=== PATIENT | female | born 1940 | race Caucasian/White ===

== ENCOUNTER 2017-02-21 10:45 | Inpatient (IN) | payer MEDICARE, BC ==
--- NOTE | ~2017-02-21 | HP ---
Unit #: [id number] #: [id number] Patient: DONI MCMAHON [id number] [address] [address] [id number] I MR#: [id number] NAME: DONI MCMAHON ROOM: 465 Age: 76 Sex: F Admission Date: 02/21/2017 : 1940 Attending Physician: Flores Kevin M.D. Primary Care Physician: Hunter Viverso M.D. HISTORY AND PHYSICAL DATE OF ANTICIPATED ADMISSION/PROCEDURE February 23, 2017 HISTORY OF PRESENT ILLNESS The patient is a 76-year-old female who suffers with osteoporosis and multiple falls. She complains of pain in her back. A thoracic CT demonstrated the presence of three fractures, and she is admitted for surgery. PAST MEDICAL HISTORY 1. Acid reflux. 2. Arteriosclerotic vascular disease. 3. Sinusitis. 4. Chronic obstructive pulmonary disease. 5. Osteoporosis. 6. Gout. 7. Possible atrial fibrillation. 8. Hiatal hernia. 9. Peripheral vascular disease. 10. High blood pressure. 11. Lymphedema. 12. Peripheral neuropathy. 13. Premature ventricular contractions. 14. Pyuria. MEDICATIONS 1. Amiodarone. 2. Amlodipine. 3. Aspirin. 4. Atenolol. 5. Cyanocobalamin. 6. Cyclobenzaprine. 7. Cyproheptadine. 8. Furosemide. 9. Montelukast. 10. Nitrofurantoin. 11. Plaquenil. 12. Prevacid. 13. ProAir inhaler 2 puffs 4 times daily as needed. 14. Vitamins. 15. Spiriva HandiHaler. 16. Tramadol. 17. Vitamin D. 18. Zyrtec. Unit #: [id number] #: [id number] Patient: DONI MCMAHON PAST SURGICAL HISTORY 1. T4 kyphoplasty. 2. Selective arterial catheterization. FAMILY HISTORY Noncontributory. SOCIAL HISTORY Nonsmoker, nondrinker. REVIEW OF SYSTEMS A 14-point review of systems is negative except for the above complaints. PHYSICAL EXAMINATION GENERAL: Patient is awake, alert, and oriented to person, place, and time. Mood and affect are appropriate. VITAL SIGNS: Heart rate is 100 beats per minute, respirations 12 per minute, blood pressure 125/85, and temperature is 98.6. DIAGNOSTIC STUDIES IMAGING: CT scan demonstrates the presence of T7, T10, and T11 compression fractures that appear acute. CLINICAL IMPRESSION 1. Osteoporosis. 2. T7, T10, and T11 compression fractures. RECOMMENDATION We discussed the various treatment options. I recommended kyphoplasty. The patient has had a good outcome from previous kyphoplasty. She understands the risks of surgery. These include ectopic methacrylate extrusion, nerve damage, and paralysis, any of which can necessitate additional surgery. She could develop additional fractures given her history. No specific outcome is guaranteed. Dictated by Fermin Molina/malena TD: 02/20/2017 20:43 JOB #: [id number] HISTORY AND PHYSICAL Page 1 of 1 X Nathan Rao MD HISTORY AND PHYSICAL
--- NOTE | ~2017-02-21 | EKG ---
PATIENT: DONI MCMAHON UNIT #: [id number] Ventricular Rate: 65 BPM Atrial Rate: 64 BPM QRS Duration: 96 ms Q-T Interval: 468 ms QTC Calculation(Bezet): 486 ms Calculated R Herrin: -22 degrees Calculated T Herrin: 13 degrees Diagnosis Line: Normal sinus rhythm Diagnosis Line: Voltage criteria for left ventricular hypertrophy Diagnosis Line: Nonspecific ST and T wave abnormality Diagnosis Line: Prolonged QT Diagnosis Line: Abnormal ECG Diagnosis Line: When compared with ECG of 01-OCT-2014 05:43, Diagnosis Line: No significant change was found Diagnosis Line: Confirmed by MELITON JULES MD ([id number]) on 02/22/2017 Diagnosis Line: 6:15:22 AM INTERPRETING MD: DHARA MCCORMICK
--- NOTE | ~2017-02-21 | CR72 ---
[facility] A Service of [facility] RADIOLOGY TEXT RESULTS PATIENT: DONI MCMAHON LOCATION: [facility] : 40 UNIT #: [id number] AGE: [address]: Flores Kevin MD SEX: F ORDER DR: [id number] [facility] [address]. [place], [place] [address] [id number] I MR#: [id number] Acc #: [id number] NAME: DONI MCMAHON : 1940 SEX: F STUDY DATE/TIME: 02/21/2017 15:27 UNIT: [facility] ROOM: [facility] STUDY DESCRIPTION: CR Chest Single View Portable Attending Physician: Flores Kevin M.D. Ordering Physician: Nathan Rao M.D. Primary Care Physician: Hunter Viveros M.D. MEDICAL IMAGING REPORT This report is preliminary unless electronic signature is present EXAM Portable chest DATE OF EXAMINATION 02/21/2017 COMPARISON 06/05/2016 HISTORY Shortness of breath for 2 weeks. FINDINGS n An AP portable view is obtained showing very low volumes. There is an increase in atelectasis in both bases. Upper lobe vascular markings are prominent but could be related to the low volumes. Left hemidiaphragm remains elevated. Heart size is stable. Postop changes of prior vertebroplasty are present in the lower thoracic region. CONCLUSION Low volumes. Increase in bibasilar atelectasis. Development of mild passive congestion, which is probably related to positioning and low volumes. Dictated by... Nathan Garces M.D. THIS IS AN ELECTRONICALLY VERIFIED REPORT Nathan Garces M.D. at 02/21/2017 10:17 PM STEPHEN/lorne TD: 02/21/2017 16:59 JOB #: [id number] [facility] A Service of [facility] RADIOLOGY TEXT RESULTS PATIENT: DONI MCMAHON LOCATION: [facility] : 40 UNIT #: [id number] AGE: [address]: Flores Kevin MD SEX: F ORDER DR: MEDICAL IMAGING REPORT Page 1 of 1 COPY
--- NOTE | ~2017-02-21 | NM69 ---
[facility] A Service [facility] RADIOLOGY TEXT RESULTS PATIENT: DONI MCMAHON LOCATION: [facility] : 40 UNIT #: [id number] AGE: [address]: Flores Kevin MD SEX: F ORDER DR: [id number] [place] [id number] [facility]. [place], [place] [address] [id number] I MR#: [id number] Acc #: [id number] NAME: DONI MCMAHON : 1940 SEX: F STUDY DATE/TIME: 02/21/2017 19:54 UNIT: [facility] ROOM: [facility] STUDY DESCRIPTION: NM Pulm Vent and Perf Attending Physician: Flores Kevin M.D. Ordering Physician: Tawanna Mijares A.P.R.N. Primary Care Physician: Hunter Viveros M.D. MEDICAL IMAGING REPORT This report is preliminary unless electronic signature is present EXAM Ventilation-perfusion lung scan HISTORY Shortness of air, elevated D-dimer. COMPARISON Portable chest 02/21/2017. TECHNIQUE Ventilation-perfusion lung scan was performed in standard 8 projections. Perfusion agent was 5.2 mCi technetium 99m MAA and the ventilation agent was 29.4 mCi technetium 99m DTPA aerosol. FINDINGS Examination demonstrates decreased ventilation-perfusion within the left lung base corresponding to left-sided atelectasis and volume loss. No ventilation-perfusion mismatches were identified. Relatively symmetric perfusion within the upper lungs bilaterally. No ventilation-perfusion mismatches identified. FINDINGS Low probability VQ scan for pulmonary embolus. No ventilation-perfusion mismatch identified. Dictated by... Sangeetha Mantilla M.D. THIS IS AN ELECTRONICALLY VERIFIED REPORT [facility] A Service [facility] RADIOLOGY TEXT RESULTS PATIENT: DONI MCMAHON LOCATION: [facility] : 40 UNIT #: [id number] AGE: [address]: Flores Kevin MD SEX: F ORDER DR: Sangeetha Mantilla M.D. at 02/22/2017 6:36 PM Juan Pablo TD: 02/21/2017 23:13 JOB #: [id number] MEDICAL IMAGING REPORT Page 1 of 1 COPY
--- NOTE | ~2017-02-21 | CR63 ---
[facility] A Service of [facility] RADIOLOGY TEXT RESULTS PATIENT: DONI MCMAHON LOCATION: [facility] : 40 UNIT #: [id number] AGE: [address]: Flores Kevin MD SEX: F ORDER DR: [id number] [facility] [address] [place], [place] [address] [id number] I MR#: [id number] Acc #: [id number] NAME: DONI MCMAHON : 1940 SEX: F STUDY DATE/TIME: 02/24/2017 7:56 UNIT: [facility] ROOM: [facility] STUDY DESCRIPTION: CR Chest 2 View Attending Physician: Flores Kevin M.D. Ordering Physician: Michele Middleton M.D. Primary Care Physician: Hunter Viveros M.D. MEDICAL IMAGING REPORT This report is preliminary unless electronic signature is present EXAM Two-view chest, 02/24/2017 HISTORY Shortness of air for 2 weeks. Essential hypertension. COMPARISON STUDIES 02/21/2017 FINDINGS Two views of the chest again demonstrate elevation of the left hemidiaphragm. There is persistent bibasilar atelectasis/infiltrate which is unchanged from prior exam. No pneumothorax. Heart size and mediastinum within normal limits. Pulmonary vasculature unremarkable. IMPRESSION Persistent elevation of the left hemidiaphragm and persistent bibasilar atelectasis/infiltrate. This is unchanged from 02/21/2017. Dictated by... Marcelo Castro M.D. THIS IS AN ELECTRONICALLY VERIFIED REPORT Marcelo Castro M.D. at 02/25/2017 8:41 AM ZOË/ivett TD: 02/24/2017 20:35 JOB #: [id number] MEDICAL IMAGING REPORT [facility] A Service of [facility] RADIOLOGY TEXT RESULTS PATIENT: DONI MCMAHON LOCATION: [facility] : 40 UNIT #: [id number] AGE: [address]: Flores Kevin MD SEX: F ORDER DR: Page 1 of 1 COPY
--- NOTE | ~2017-02-21 | US84 ---
[id number] [facility]. [facility] [address] [place], [place] [address] [id number] I MR#: [id number] Acc #: [id number] NAME: DONI MCMAHON : 1940 SEX: F STUDY DATE/TIME: 02/21/2017 16:15 UNIT: C4 ROOM: 465 STUDY DESCRIPTION: US LE Veins Complete Joon Stdy Attending Physician: Flores Kevin M.D. Ordering Physician: Nathan Rao M.D. Primary Care Physician: Hunter Viveros M.D. MEDICAL IMAGING REPORT This report is preliminary unless electronic signature is present EXAM Bilateral lower extremities Doppler HISTORY 76-year-old female with immobility, elevated D-dimer, shortness of air. Patient has no prior history of DVT. FINDINGS 2-D Doppler evaluation of right lower extremity demonstrates non-compressible lumen of the right superficial femoral vein with absence of Doppler flow. Finding compatible with isolated DVT within the right superficial femoral vein. In the left lower extremity, there is inability to compress the popliteal vein and absence of Doppler flow and this is compatible with popliteal vein thrombosis. The remainder of the lower extremity superficial and deep veins appear patent with normal flow and compressibility. IMPRESSION Abnormal bilateral lower extremity venous Doppler with findings compatible with DVT involving the right superficial femoral vein and left popliteal vein as detailed above. Findings were called to the floor by the electro mechanical technologist. Dictated by... Sangeetha Mantilla M.D. THIS IS AN ELECTRONICALLY VERIFIED REPORT Sangeetha Mantilla M.D. at 02/22/2017 6:35 PM ANNAMARIA/gillian TD: 02/21/2017 21:36 JOB #: [id number] MEDICAL IMAGING REPORT Page 1 of 1 COPY
--- NOTE | ~2017-02-21 | HP ---
Unit #: [id number] #: [id number] Patient: DONI MCMAHON [id number] [facility]. [address] [place], [place] [address] [id number] I MR#: [id number] NAME: DONI MCMAHON ROOM: 465 Age: 76 Sex: F Admission Date: 02/21/2017 : 1940 Attending Physician: Flores Kevin M.D. Primary Care Physician: Hunter Viveros M.D. HISTORY AND PHYSICAL HISTORY OF PRESENT ILLNESS This is a very pleasant 76-year-old female who is typically followed in the office by Dr. Kevin. The patient states she was here today for scheduled kyphoplasty of her lower thoracic and upper lumbar spine with Dr. Rao, however, it was cancelled due to suspicion for possible DVT/PE. According to the patient and daughter, she saw Dr. Akins on Saturday of this week regarding her back pain and was found to have a urinary tract infection and was started on antibiotics. She was then notified that her labs were abnormal with some suspicion for DVT and PE. The patient has a past medical history of paroxysmal atrial fibrillation not on any anticoagulation secondary to inability to regulate her INRs and not on any novel agents secondary to cost. The patient states she has been off anticoagulation for approximately one year, CLL/lymphoma, lupus, hypertension, COPD, peripheral vascular disease, previous mini stroke in 2001, chronic back pain, chronic kidney disease reported as stage [address] Martinez, degenerative joint disease, degenerative disk disease and GERD. The patient reports she has been noticing some lower extremity swelling as well as shortness of breath. However, she states she has always had some shortness of breath, however, over the last two to three days the daughter reports her shortness of breath has worsened especially with activity. The patient denies any complaints of chest pain, tightness or pressure. She denies any PND, orthopnea. At present, she is in the chair. She appears comfortable. She is not in any acute distress. She is on room air with normal oxygen saturation. We are currently awaiting laboratory, D-dimer, as well as portable chest x-ray. She also has a STAT venous Doppler which is pending. PAST MEDICAL HISTORY 1. Hypertension. 2. COPD followed by Dr. Middleton in the past. 3. Peripheral vascular disease. 4. Paroxysmal atrial fibrillation, no anticoagulation for the last year secondary to labile INRs and inability to regulate. Patient unable to afford novel agents. 5. CLL/lymphoma followed by Dr. Steiner in the past. 6. Lupus. 7. Cardiac catheterization in May 2011 showed no hemodynamically fixed coronary stenosis. There was spontaneous intimal dissection in the Unit #: [id number] #: [id number] Patient: DONI MCMAHON posterior division of the first marginal branch of the circumflex which did not cause any compromise of the lumen. Medical management was recommended at that time. 8. 2D echocardiogram in 2013 showed LVEF of 55%, impaired LV relaxation, mild TR, mild , RVSP was normal. PAST SURGICAL HISTORY 1. Cholecystectomy. 2. Appendectomy. 3. Oophorectomy. 4. Bilateral lower extremity angioplasty. Patient states she had a stent to her right iliac in the past. 5. Thoracic kyphoplasty in January 2016. HOME MEDICATIONS 1. Spiriva. 2. ProAir. 3. Plaquenil 200 mg one tablet b.i.d. 4. Tramadol 50 mg one q.6 h. p.r.n. 5. Amiodarone 200 mg one p.o. daily. 6. Atenolol 50 mg one tablet p.o. b.i.d. 7. Furosemide 40 mg one every other day. 8. Norvasc 5 mg one p.o. daily. 9. Singulair 10 mg one p.o. daily. 10. Aspirin 81 mg daily. 11. Tylenol Extra Strength as needed. 12. Vitamin D 1000 units four tablets daily. 13. Prevacid 15 mg b.i.d. 14. Mucinex 600 mg one daily. 15. Allergy Relief 10 mg one daily. 16. Recently started on Macrobid b.i.d. ALLERGIES 1. Codeine. 2. Oral contrast. 3. Penicillin. 4. Protonix. 5. Sulfa. SOCIAL HISTORY The patient lives alone. She has a walker at home for use when needed. Her daughter is close by. She states she is not very active secondary to her chronic back pain but she does get up and move around somewhat. Reformed tobacco abuse, quit in 2001. Denies illicit drugs or alcohol. FAMILY HISTORY Positive for coronary artery disease with an KS in her mother in her 60s. REVIEW OF SYSTEMS As stated above in the HPI. Positive for chronic back pain. Denies weight loss or weight gain. Some lower extremity swelling. History of CLL lymphoma treated by Dr. Steiner in the past. PHYSICAL EXAMINATION VITAL SIGNS: Temperature 98.5, respiratory rate 18 to 20, pulse 60s to 70s, blood pressure 154/61, BMI is 28. GENERAL: The patient is a pleasant 76-year-old female, daughter is at bedside, she is in no acute distress. Unit #: [id number] #: [id number] Patient: DONI MCMAHON: Atraumatic, normocephalic. Pupils are equal and round. Mucous membranes are moist. NECK: Trachea is midline. No thyromegaly or lymphadenopathy. LUNGS: Clear to auscultation anterior. Diminished in the bases. HEART: S1, S2. Irregular. No murmur, no gallop or rub. ABDOMEN: Soft, obese, nontender, nondistended. Positive bowel sounds. EXTREMITIES: Pedal pulses are palpable. Trace pedal edema. No clubbing or cyanosis is noted. No erythema or warmth is noted. Homans sign was negative. DIAGNOSTIC STUDIES LABORATORY: Glucose 94, BUN 20, creatinine 1.3, sodium 140, potassium 3.8, chloride 100, CO2 is 26. Coags PT 11.3, INR 1.1, PTT 29.3. D-dimer 844. Hemoglobin 12.9, hematocrit 41.6, WBC 8.0, platelet count 203. IMAGING: CT of the thoracic spine without contrast shows: 1) Mild compression deformities of inferior T7, superior T11 and superior T12 which are new compared to 10/01/2014. These are favored to represent chronic findings based upon their appearance, however, subacute fractures are not completely excluded. 2) There are more chronic-appearing compression deformities of the endplates of T1, 2 and 10 which have been documented on prior CT. 3) Compression deformities of L1, T8 and T4 which have undergone previous vertebroplasty change. Chest x-ray is pending. CARDIOVASCULAR: EKG is currently pending. IMPRESSION 1. Shortness of breath, rule out DVT and PE. 2. Patient was scheduled for kyphoplasty secondary to compression fractures. 3. History of hypertension. 4. History of paroxysmal atrial fibrillation not on anticoagulation secondary to labile INRs and inability to regulate. Patient unable to afford novel agents. 5. History of CLL lymphoma. She has been followed by Dr. Steiner in the past. Last follow up was two years ago. 6. Cardiac catheterization in 2010 showed an LVEF of 45% to 50% with spontaneous intimal dissection in the posterior division of the first marginal of the circumflex. No compromise to the lumen. No other hemodynamically fixed stenosis was noted. Medical management was recommended. 7. 2D echocardiogram in 2013 showed LVEF of 55%, impaired LV relaxation, mild TR, mild , RVSP was normal. 8. History of peripheral vascular disease with stenting to the right iliac. 9. Chronic kidney disease stage [address] Martinez. 10. History of mini stroke. 11. Chronic back pain, degenerative disk and degenerative joint disease. 12. Chronic obstructive pulmonary disease. PLAN 1. The patient was actually scheduled for kyphoplasty today; however, due to some abnormal lab work and suspicion for pulmonary embolus and DVT, this was canceled. She has been complaining of increasing shortness of breath and some lower extremity edema, however, there are no physical signs of erythema, redness, or swelling in the lower Unit #: [id number] #: [id number] Patient: DONI MCMAHON. Currently, we are awaiting lower extremity venous Dopplers as well as a D-dimer. If the venous Doppler and D-dimer are negative, it will be okay for IR to proceed tomorrow for kyphoplasty. At this time, we will discontinue the Lovenox. She will be continued on her home medication regimen as ordered. If her D-dimer is positive, the patient will need to undergo VQ scan to rule out pulmonary embolus as she cannot have a CT scan due to her chronic kidney disease. 2. In regard to the patient's atrial fibrillation which she has paroxysmally, she has not been on any anticoagulation secondary to labile INRs and inability to regulate. The patient, in the past, has not been able to afford novel agents. Once her surgery has been completed, will need to possibly revisit reinitiation of anticoagulation and see what the patient could afford as she would be a candidate for novel agents. Dictated by Marybel Abbasi M.D. LMW/cs TD: 02/21/2017 16:56 JOB #: [id number] HISTORY AND PHYSICAL Page 1 of 1 X Tawanna Mijares APRN HISTORY AND PHYSICAL
--- NOTE | ~2017-02-21 | EKG ---
PATIENT: DONI MCMAHON UNIT #: [id number] Ventricular Rate: 53 BPM Atrial Rate: 53 BPM P-R Interval: 176 ms QRS Duration: 104 ms Q-T Interval: 518 ms QTC Calculation(Bezet): 486 ms P [place]: 42 degrees Calculated R [place]: -19 degrees Calculated T [place]: 15 degrees Diagnosis Line: Sinus bradycardia Diagnosis Line: Left ventricular hypertrophy with repolarization Diagnosis Line: abnormality Diagnosis Line: Abnormal ECG Diagnosis Line: When compared with ECG of 21-FEB-2017 14:33, Diagnosis Line: Nonspecific T wave abnormality no longer evident Diagnosis Line: in Lateral leads Diagnosis Line: Confirmed by CLIFFORD CATES MD ([id number]) on Diagnosis Line: 02/23/2017 4:46:16 PM INTERPRETING MD: CATIE
--- NOTE | ~2017-02-21 | DS ---
Unit #: [id number] #: [id number] Patient: DONI MCMAHON [id number] [address] [place], [place] [address] [id number] I MR#: [id number] NAME: DONI MCMAHON ROOM: [facility] Age: 76 Sex: F Admission Date: 02/21/2017 : 1940 Discharge Date: 02/23/2017 Attending Physician: Flores Kevin M.D. Primary Care Physician: Hunter Viveros M.D. DISCHARGE SUMMARY DISCHARGE DIAGNOSES 1. Bilateral deep venous thromboses. 2. Chronic back pain, has compression fractures: Tentative plans had been to have kyphoplasty. Follows Dr. Rao. 3. History of multiple falls in the past. 4. History of paroxysmal atrial fibrillation, currently remains in normal sinus rhythm: Had not been on chronic anticoagulation due to patient's inability to regulate her INRs and refuse de ro agent secondary to cost and refused to stay on Coumadin. 5. Chronic obstructive pulmonary disease. 6. Hypokalemia which is resolved. 7. Left ventricular ejection fraction of 55%. 8. History of chronic lymphocytic leukemia lymphoma, followed by Dr. Steiner. 9. Lupus. 10. Peripheral vascular disease: Has a right iliac stent. 11. 2010 heart catheterization showed no hemodynamically fixed coronary stenosis. 12. Hypertension. 13. Chronic kidney disease. HOSPITAL COURSE This is a 76-year-old white female who was admitted to the hospital originally by Dr. Rao and for reports of having some worsening lower extremity swelling as well as some shortness of breath. The patient has been under the care of Dr. Rao for presence of three compression fractures in thoracic spine. He had planned to do kyphoplasty but, after hearing her symptoms and wanted to make sure she didn't have a PE or DVT, he canceled the procedure. The patient was admitted to the hospital originally under Dr. Rao's care. He had asked cardiology to assist with evaluation and management since he knows that she is a cardiac patient of Dr. Kevin's. Chest x-ray showed increase in bibasilar atelectasis and some mild passive congestion. Ultrasound of bilateral lower extremities showed DVT in the right superficial femoral vein and left popliteal vein. Ventilation lung perfusion scan revealed a low probability for a V/Q scan for PE. The patient did not have a CT with contrast due to having low eGFR. The patient had been initiated on heparin and heparin drip per protocol for anticoagulation. The patient remains in normal sinus rhythm throughout this hospitalization. Her atenolol has been decreased to 25 mg p.o. twice daily due to some bradycardia. Heart rate is low in the middle 50s, nothing any lower. She has been getting 50 mg of atenolol daily instead of 50 b.i.d. Unit #: [id number] #: [id number] Patient: DONI MCMAHON With evidence of a DVT, he has been started on Eliquis. That will be a dose of 10 mg p.o. twice daily for seven days and then 5 mg p.o. twice daily. The plan is to be on that for several weeks and then will let Dr. Rao decide when he wants to do her kyphoplasty. The cost of Eliquis was checked. It is $45.00 a month but she gets the first month free and, according to the patient, that is affordable. Dr. Middleton, her camp director, is following the patient. It is noted the patient's oxygen level decreased down after she received two Percocet 10/325 tablets for her back pain. O2 saturation decreased down to 88% but after she was instructed to sit up and take deep breaths, it increased up to 94% and she was on [address] Kevin and the nurse had a long discussion with the patient and her daughter who is at the bedside about not taking too much of the Percocet, maybe cutting him back down to one tablet every six to eight hours to avoid decreasing her respiratory drive. Dr. Kevin had a long discussion with them saying that if she got overmedicated and sedated it could decrease her respiratory effort and she could run into problems and even in the situation that may be going into cardiopulmonary arrest. The daughters became very upset about the patient not getting to have her kyphoplasty at this time. That was again explained that it is not an emergency and Dr. Rao stated to patient and the daughter that he did not want to perform the procedure at this time and will make that decision later as an outpatient. Dr. Middleton will see the patient today before discharge and evaluate her respiratory status. There will be evaluation for home oxygen due to the patient's oxygen level saturations dropping, especially while she is taking narcotics and having COPD. On the day of discharge, the patient has no signs or symptoms of acute congestive heart failure, unstable angina. Her heart rate and blood pressure are stable. PHYSICAL EXAMINATION AT TIME OF DISCHARGE VITAL SIGNS - Blood pressure is 137/60, heart rate 60, respirations 18, afebrile. HEART - S1, S2. Regular rate and rhythm. LUNGS - very diminished. ABDOMEN - soft, nontender. EXTREMITIES - pedal pulses are palpable with trace pedal edema. LABORATORY AND DIAGNOSTIC DATA Today's labs - glucose is 112, BUN 19, creatinine 1.9, eGFR is 43.9, sodium 137, potassium 4.0, chloride 104, CO2 26, calcium 8.8, magnesium 2.2, total protein 7.5, albumin 4.1, bili total 0.6, AST 22, ALT 16, alkaline phos is 117. TSH is 2.12. WBC is 8.2, hemoglobin 12.2, hematocrit 39.2 and platelets is 192. CARDIOVASCULAR: Telemetry shows normal sinus rhythm with ventricular rate 61 beats/minute. PLAN/INSTRUCTIONS 1. The patient will be discharged home later today if permissible by Dr. Middleton and evaluated for home oxygen. Unit #: [id number] #: [id number] Patient: DONI MCMAHON 2. Have instructed the staff to have Dr. Middleton reinforce instructions on not overdosing on the narcotics and try to only take Percocet 10/325, one tablet every six hours instead of every four hours and only taking one tablet at a time to prevent any depression of her respiratory effort. 3. The patient states it is affordable for her [employer]quis which is $45.00 a month. She will get the first month free. The co-pay card and information about Eliquis is provided to the patient and the family. 4. The patient's heart rate was running occasionally in the 50s but mostly 60s. Will decrease down to the atenolol 25 mg p.o. twice daily instead of 50 mg b.i.d. They have been holding the dose of atenolol each day so she has only been getting 50 mg total daily. 5. Continue on lisinopril, aspirin, Lasix and amiodarone. The patient remains in normal sinus rhythm. 6. On exam, there are no signs or symptoms of CHF or unstable angina. 7. Discharge Meds - see [facility] Rec. 8. We will call the patient next week for a followup appointment with Dr. Kevin since it is the weekend. 9. Also instructed the patient to stop her Norvasc, to stop when she came in, to avoid any hypotension. Dictated by... Beth GaticaPGabRGabNGab for Fermin Boateng/raffi TD: 02/23/2017 15:49 JOB #: [id number] DISCHARGE SUMMARY Page 1 of 1 X Cathie Carvalho APRN X DISCHARGE SUMMARY
--- NOTE | ~2017-02-21 | CO ---
Unit #: [id number] #: [id number] Patient: DONI MCMAHON [id number] [facility]. [place] [id number] [facility]. [place], [place] [address] [id number] I MR#: [id number] NAME: DONI MCMAHON ROOM: 465 Age: 76 Sex: F Admission Date: 02/21/2017 : 1940 Attending Physician: Flores Kevin M.D. Primary Care Physician: Hunter Viveros M.D. Consultation Date: 02/22/2017 CONSULTATION REPORT We were asked to see her by Dr. Cerrato. Original consult was from Dr. Rao to Dr. Cerrato. REASON FOR CONSULTATION Possible PE. HISTORY OF PRESENT ILLNESS Ms. Mcmahon is a 76-year-old female with history of stage II COPD, who apparently lifted something at home, maybe couple of weeks ago at most and felt some pain. She did okay, but then a week later, the pain was even worse. She therefore came to medical attention. It is notable that she has also experienced leg swelling for a long time, actually may be more than a year. She had some shortness of air when she came in may be a bit more than usual, but not sudden. In reality, she does have intermittent episodes of shortness of air. She really did not complain of chest pain. There was a D-dimer done that was positive and there was some concern about a pulmonary embolism. She did have lower extremity venous Dopplers with a DVT of left popliteal vein. Right now, she is breathing okay. She did smoke, but quit in 2001. She has just a mild occasional cough no worse than usual. PAST MEDICAL HISTORY Otherwise significant for previous DVT, treated for years. She took Coumadin and had a lot of trouble with it with elevated INR and eventually was taken off the Coumadin maybe a year ago. History of atrial fibrillation, hypertension, lupus, lymphoid leukemia, lymphoma. PAST SURGICAL HISTORY Include abdominal surgery in 1952, angioplasty of the left leg in 2000, right leg stent in 2001, cholecystectomy in 2001. MEDICATIONS On admission had included Prevacid 30 mg p.o. daily, Tenormin 50 mg p.o. b.i.d., Singulair 10 mg p.o. daily, lisinopril 20 mg p.o. daily, aspirin 81 mg p.o. daily, vitamin D3 2000 units p.o. daily, tramadol/acetaminophen which actually was advised to take them separately but may be not, 50 mg q.6; Lasix 40 mg p.o. every other day, Plaquenil 200 mg p.o. b.i.d., Spiriva 1 capsule inhaled daily, ProAir HFA two puffs q.i.d. p.r.n., amiodarone 200 mg p.o. daily, Norvasc 5 mg p.o. daily, Percocet 10/325 q.4h p.r.n. I do not think she took it more than three or four times a day, Mucinex 600 mg p.o. daily, loratadine 10 mg p.o. daily, Flexeril 5 mg p.o. b.i.d., Macrobid 100 mg p.o. b.i.d. ALLERGIES Unit #: [id number] #: [id number] Patient: DONI MCMAHON Contrast media, penicillin, sulfa, codeine, piroxicam, polyethylene glycol, ranitidine, and Protonix. SOCIAL HISTORY She did smoke, but she quit in 2001. FAMILY HISTORY Significant for lung cancer in her father. SYSTEMS REVIEW Some nausea. No vomiting. No diarrhea. Leg swelling. No skin complaints. All other systems are negative except as mentioned. DIAGNOSTIC STUDIES LABORATORY RESULTS: PFTs done in our office dated 12/18/2013; FVC 1.58, 55% predicted, FEV1 1.52, 68% of predicted, ratio of 2 is 99. Technically, these are consistent with moderate restriction. She had a ventilation-perfusion scan that was low probability. IMPRESSION 1. Left leg deep venous thrombosis popliteal vein. 2. No evidence of pulmonary embolism. 3. Chronic obstructive pulmonary disease stage II, stable. 4. Compression fractures. PLAN We will have to treat her DVT before we consider any back surgery. At best that would be 3 months, although if she has significant pain, we could consider one month with bridging therapy. Certainly if we can consider an IVC filter and proceeding earlier if pain were terrible, although I hate to do that for a popliteal DVT. Thank you very much for allowing me to participate in care of this patient. Dictated by... Fermin Fletcher TD: 02/23/2017 01:37 JOB #: [id number] CONSULTATION REPORT Page 1 of 1 X Michele Middleton MD CONSULTATION REPORT
[~2017-02-21 10:45] MED LIST: ACETAMINOPHEN PO; ALBUTEROL17 GM INH; ALVESCO6.1 G1 IH; AMIODARONE; AMIODARONE PO; APRESOLINE PO; ASPIRIN EC81 M1 PO; ASPIRIN PO; ASPIRIN81 M1 PO; ASPIRINEC PO; ASTELIN137 MCG INH; ATENOLOL PO; ATENOLOL25 MG PO; ATENOLOL50 MG PO; B 6 PO; B-12; B6100 MG PO; CARAFATE PO; CENTRUM SILVER PO; CENTRUM SILVER1 EAC2 PO; CITRACAL PLUS T1 TAB PO; COUMADIN3 MG PO; CYPROHEPTADINE; CYPROHEPTADINE H4 MG PO; FLOMAX PO; FORADIL12 MCG INH; HYDRALAZINE HCL50 MG PO; KCL PO; LASIX PO; LASIX20 MG PO; LIDOCAIN TD; LISINOPRIL20 MG PO; MUCINEX DM1 TAB.SR . PO; MUCINEX PO; MUCINEX22 ML PO; PERIACTIN4 MG PO; PLAQUENIL; PLAQUENIL200 MG PO; PLAVIX PO; POTASSIUM CHLO10 ME1 PO; PREMPRO 0.625/21 TAB PO; PREVACID PO; PROAIR HFA8.5 GM IH; PROAIR HFA8.5 GM INH; SINGULAIR PO; SOTALOL AF80 M1 PO; SPIRIVA18 MCG INH; SPIRIVA18 MCG PO; SUPER B COMPLEX1 CAP PO; TENORMIN25 MG PO; TRAMADOL HCL-AP1 TAB PO; TRAMADOL-ACETA1 EACH PO; ULTRACET TABLE1 EACH PO; ULTRAM PO; VICODIN PO; VIT B 12 INJ; VIT B6; VIT D; VITAMIN B-1000 MCG/1 INJ; VITAMIN D-32000 UNI2 PO; VITAMIN D1000 UNI1 PO; VITAMIN D1000 UNI2 PO; VITB 12; ZYLOPRIM100 MG PO; ZYRTEC PO; [UNRECOGNIZED DRUG - OTHER]
[2017-02-21 14:58] LABS: BASOPHIL# 0.1 X10e3 (0-0.3); BASOPHIL% 1.2 % (0-2.5); EOSINOPHIL# 0.1 X10e3 (0-0.7); EOSINOPHIL% 1.8 % (0.0-7.0); HEMATOCRIT 41.6 % (35.0-45.0); HEMOGLOBIN 12.9 gm/dL (12.0-16.0); LYMPHOCYTE% 12.3 % (17.0-45.0); MEAN CELL VOLUME 85.7 FL (83-96); MEAN CORPUSCULAR HEMOGLOBIN 26.5 PG (28-34); MEAN PLATELET VOLUME 9.2 FL (6.5-11.5); MONOCYTE# 0.8 X10e3 (0-1.0); MONOCYTE% 10.5 % (3.0-12.0); NEUTROPHIL# 5.9 X10e3 (1.5-7.1); NEUTROPHIL% 74.2 % (40-75); PLATELET COUNT 203 X10e3 (140-420); RED BLOOD COUNT 4.85 X10e (3.90-5.30); RED CELL DISTRIBUTION WIDTH 15.6 % (11.0-15.5)
[2017-02-21 15:11] LABS: INR 1.1; PARTIAL THROMBOPLASTIN TIME 29.3 SECONDS (23.5-31.3); PROTHROMBIN TIME (PATIENT) 11.3 SECONDS (9.6-11.5)
[2017-02-21 15:12] LABS: DIFF IND NO
[2017-02-21 15:25] LABS: ALBUMIN SERUM 4.1 g/dL (3.5-5.0); BILIRUBIN,TOTAL 0.6 mg/dL (0.2-2.0); BUN/CREATININE RATIO 15.38; CALCIUM SERUM 9.6 mg/dL (8.4-10.2); CREATININE SERUM 1.3 mg/dL (0.6-1.4); GLOM FILT RATE Estimated 39.8 mL/min (>60); POTASSIUM 3.8 mmol/L (3.5-5.1); PROTEIN TOTAL SERUM 7.5 g/dL (6.0-8.3)
[2017-02-21] MEDS ORDERED: SPIRIVA18 MCG INH (15:31)
[2017-02-21] MEDS ORDERED: PROAIR HFA8.5 GM INH (15:31)
[2017-02-21] MEDS ORDERED: AMIODARONE HCL200 MG PO (15:36)
[2017-02-21] MEDS ORDERED: NORVASC PO (15:39)
[2017-02-21] MEDS ORDERED: PERCOCET10 PO (15:41)
[2017-02-21] MEDS ORDERED: MUCINEX PO (15:43)
[2017-02-21] MEDS ORDERED: ALLERGY10 M1 PO (15:44)
[2017-02-21] MEDS ORDERED: FLEXERIL PO (15:45)
[2017-02-21] MEDS ORDERED: MACROBID100 M1 PO (15:46)
[2017-02-21 19:17] LABS: URINE SOURCE CLEAN CATCH
[2017-02-21 19:38] LABS: URINE APPEARANCE CLEAR; URINE BILIRUBIN NEG (NEG); URINE BLOOD NEG (NEG); URINE COLOR DK YELLOW; URINE GLUCOSE NEG (NEG); URINE KETONE 3+ (NEG); URINE LEUKOCYTE ESTERASE NEG (NEG); URINE NITRATE NEG (NEG); URINE PROTEIN 2+ (NEG); URINE SPECIFIC GRAVITY 1.019 (1.003-1.035)
[2017-02-21 19:39] LABS: URBCS1 AUWI 0-2 /[HPF] (0-2); URINE BACTERIA AUWI NEG (NEGATIVE); URINE SQUAMOUS EPITHELIAL CELL NONE SEEN /[HPF]; UWBCS1 AUWI 0-2 (0-5)
[2017-02-21 19:41] LABS: CULTURE INDICATED? NO
[2017-02-22 04:23] LABS: BASOPHIL% 0.5 % (0-2.5); EOSINOPHIL# 0.4 X10e3 (0-0.7); EOSINOPHIL% 5.4 % (0.0-7.0); HEMATOCRIT 39.2 % (35.0-45.0); HEMOGLOBIN 12.2 gm/dL (12.0-16.0); LYMPHOCYTE% 12.6 % (17.0-45.0); MEAN CELL VOLUME 85.9 FL (83-96); MEAN CORPUSCULAR HEMOGLOBIN 26.7 PG (28-34); MEAN CORPUSCULAR HGB CONC 31.1 g/dL (30-36); MONOCYTE# 1.1 X10e3 (0-1.0); MONOCYTE% 13.9 % (3.0-12.0); NEUTROPHIL# 5.5 X10e3 (1.5-7.1); NEUTROPHIL% 67.6 % (40-75); PLATELET COUNT 192 X10e3 (140-420); RED BLOOD COUNT 4.56 X10e (3.90-5.30); RED CELL DISTRIBUTION WIDTH 15.3 % (11.0-15.5); WHITE BLOOD COUNT 8.2 X10e3 (4.0-10.5)
[2017-02-22 04:26] LABS: DIFF IND NO
[2017-02-22 04:45] LABS: BUN/CREATININE RATIO 14.61; CALCIUM SERUM 9.1 mg/dL (8.4-10.2); CREATININE SERUM 1.3 mg/dL (0.6-1.4); GLOM FILT RATE Estimated 39.8 mL/min (>60); POTASSIUM 3.4 mmol/L (3.5-5.1)
[2017-02-22 07:26] LABS: INR 1.1; PROTHROMBIN TIME (PATIENT) 11.7 SECONDS (9.6-11.5)
[2017-02-23 03:21] LABS: BUN/CREATININE RATIO 15.83; CALCIUM SERUM 8.8 mg/dL (8.4-10.2); CREATININE SERUM 1.2 mg/dL (0.6-1.4); GLOM FILT RATE Estimated 43.9 mL/min (>60); MAGNESIUM 2.2 mg/dL (1.6-3.0)
[2017-02-24] MEDS ORDERED: ELIQUIS5 MG PO (09:05)
== END 2017-02-24 13:43 | disposition home health service (06) | DRG 300 ==
LOC: C4C 10:45
PROVIDERS: Internal Medicine Cardiovascular Disease; Nurse Practitioner; Orthopaedic Surgery Orthopaedic Surgery of the Spine
DX: I82.403 Acute embolism and thrombosis of unspecified deep veins of lower extremity, bilateral (principal); N18.4 Chronic kidney disease, stage 4 (severe); M32.9 Systemic lupus erythematosus, unspecified; I48.0 Paroxysmal atrial fibrillation; J44.9 Chronic obstructive pulmonary disease, unspecified; M54.9 Dorsalgia, unspecified; G89.29 Other chronic pain; Z91.81 History of falling; E87.6 Hypokalemia; I73.9 Peripheral vascular disease, unspecified; I12.9 Hypertensive chronic kidney disease with stage 1 through stage 4 chronic kidney disease, or unspecified chronic kidney disease; Z85.6 Personal history of leukemia; Z88.0 Allergy status to penicillin; Z88.2 Allergy status to sulfonamides; Z88.5 Allergy status to narcotic agent; Z88.8 Allergy status to other drugs, medicaments and biological substances; Z91.041 Radiographic dye allergy status; Z87.891 Personal history of nicotine dependence; Z80.1 Family history of malignant neoplasm of trachea, bronchus and lung; Z86.73 Personal history of transient ischemic attack (TIA), and cerebral infarction without residual deficits; M48.54XD Collapsed vertebra, not elsewhere classified, thoracic region, subsequent encounter for fracture with routine healing
CPT/HCPCS: 71010; 71020; 72128; 78582; 80048; 80053; 81003; 82947; 83735; 84443; 85025; 85379; 85610; 85730; 93005; 93970; 94640; 94664; 94760; A9540; A9567; J1170; J1644

== ENCOUNTER 2017-03-08 19:17 | Inpatient (IN) | payer MEDICARE, BC ==
--- NOTE | ~2017-03-08 | HP ---
Unit #: [id number] #: [id number] Patient: DONI MCMAHON [id number] [facility] [address] [facility]. [place], [place] [address] [id number] I MR#: [id number] NAME: DONI MCMAHON ROOM: 424[address] Age: 76 Sex: F Admission Date: 03/08/2017 : 1940 Attending Physician: Aric Hicks M.D. Primary Care Physician: Hunter Viveros M.D. HISTORY AND PHYSICAL CHIEF COMPLAINT Worsening back pain. DISCUSSION This is a 76-year-old white female with past medical history of chronic back pain, history of subacute thoracic spine compression fracture, paroxysmal afib, COPD, chronic lymphocytic leukemia, history of lupus, peripheral vascular disease, coronary artery disease, hypertension, chronic kidney disease, osteoporosis. She was recently admitted here in the hospital at [facility] from 02/21 to 02/23. She was admitted by Dr. Rao. She was under evaluation for kyphoplasty, for subacute three compression fractures of thoracic spine but she had been having some bilateral lower extremity edema and shortness of breath. She was eventually admitted here in the hospital. She had a workup. Ultrasound of bilateral lower extremities shows DVT in the right superficial femoral vein and left popliteal vein. She had a V/Q scan which was low probability for the pulmonary embolism. She was initially placed on heparin protocol and then eventually she was sent home on Eliquis. She had some sinus bradycardia while in hospital. Her atenolol dose was decreased to 25 mg b.i.d. and Eliquis was told to take 10 mg b.i.d. for seven days then 5 mg b.i.d. She was also evaluated by Cardiology and also Pulmonary while she was in the hospital and her oxygen 2 L nasal cannula was arranged for home and eventually she was discharged home. She said she has been having since discharge worsening lower back pain and some numbness and tingling in lower extremities and she called spine doctor, Dr. aRo. She was sent to the ER. She underwent repeat CT scan which shows subacute versus acute compression fracture of T12 vertebral body and she has been admitted for pain control and possible rehab placement. She denied chest pain. She denies nausea, vomiting, fever, chills, cough or any other complaint. She has been having also recently UTI being treated with Levaquin. PAST MEDICAL HISTORY 1. Recently diagnosed on bilateral lower leg DVT. 2. History of chronic back pain with three compression fractures of the spine. She has undergone evaluation for kyphoplasty by Dr. Rao. 3. History of multiple falls. 4. Paroxysmal atrial fibrillation. 5. Chronic obstructive pulmonary disease, currently oxygen dependent. 6. History of hypokalemia. 7. History of left ventricular ejection fraction 55%. Unit #: [id number] #: [id number] Patient: DONI MCMAHON 8. Chronic lymphocytic leukemia/lymphoma followed by Dr. Steiner. 9. History of lupus. 10. History of peripheral vascular disease, status post right iliac stent. 11. History of cardiac cath in 2010 shows no hemodynamically fixed stenosis. 12. History of hypertension. 13. Chronic kidney disease. PAST SURGICAL HISTORY 1. Oophorectomy. 2. Appendectomy. 3. Cholecystectomy. 4. Bilateral lower extremity angioplasty. Stent to right iliac artery in the past. 5. History of thoracic kyphoplasty in January 2016. ALLERGIES Iodine, oral contrast, penicillin, Protonix, sulfa. SOCIAL HISTORY Patient lives alone. She has a walker at home for use. Her daughter lives close by. She recently has not been very active secondary to chronic back pain. She has remote tobacco abuse. She quit in 2001. She denies illicit drug use. FAMILY HISTORY Positive for coronary artery disease with NM in her mother in her 60s. HOME MEDICATIONS Medication from home is followin. Tramadol 50 mg q.6 h. p.r.n. 2. Lasix 40 mg q.48 h. 3. Plaquenil 200 mg b.i.d. 4. Spiriva one HandiHaler daily. 5. ProAir p.r.n. 6. Amiodarone 200 mg daily. 7. Percocet 10/325 one tablet q.6 h. p.r.n. 8. Mucinex 600 mg daily. 9. Allergy 10 mg daily. 10. Prevacid 30 mg daily. 11. Tenormin 25 mg b.i.d. 12. Singulair 10 mg daily. 13. Aspirin 81 mg daily. 14. Vitamin D3 2000 units daily. 15. Eliquis 5 mg b.i.d. 16. Levaquin 500 mg p.o. daily. REVIEW OF SYSTEMS All review of systems negative except as per history of present illness. PHYSICAL EXAMINATION GENERAL: On examination elderly female lying in the bed comfortably not in any distress. On general examination she is alert, awake, oriented x3, comfortable, not in any distress. VITAL SIGNS: Current vitals are following: Temperature 98.4, heart rate 62, respiratory rate 18, blood pressure (1) . Unit #: [id number] #: [id number] Patient: DONI MCMAHON: Head is atraumatic, normocephalic. Pupils equally react to light and accommodation. Mucous membranes moist. NECK: Trachea midline. No thyromegaly. No lymphadenopathy. LUNGS: Clear to auscultation, with decreased air entry. HEART: S1, S2, regular. No murmur. No gallop, ABDOMEN: Soft, nontender, nondistended. Bowel sounds positive. EXTREMITIES: Trace edema. NEUROLOGIC: No focal neurologic deficit. DIAGNOSTIC STUDIES LABORATORY: Workup is following: UA shows positive nitrite, WBC 5 to 10. Chemistry: Sodium 140, potassium 3.3, chloride 97, glucose 91, BUN 25, creatinine 1.5. LFTs within normal limits. INR is 1.3. CBC: Whiter count 7.3, hemoglobin 13, hematocrit 41, platelet is 301. IMAGING: CT scan of thoracic spine shows acute versus subacute compression fracture of T12. ASSESSMENT AND PLAN 1. Acute/subacute compression fracture of T12 with history of chronic back pain, three compression fractures of the spine. She has been followed by Dr. Rao. She was in the process for getting kyphoplasty but secondary to recent DVT, kyphoplasty has been canceled. Will admit the patient for pain control. Dr. Rao to see. And possible rehab placement. 2. Urinary tract infection: Hold the p.o. Levaquin while in the hospital. Start IV Levaquin. Follow up culture. 3. History of bilateral leg recent DVTs: She is on the Eliquis. 4. History of paroxysmal atrial fibrillation, on amiodarone and Tenormin. 5. History of chronic obstructive pulmonary disease, oxygen dependent. 6. Chronic lymphocytic leukemia. 7. History of lupus. 8. History of peripheral vascular disease with status post right iliac stent. 9. Hypertension. 10. Chronic kidney disease. 11. History of osteoporosis. Dictated by Fermin Garcia/julio TD: 03/08/2017 22:10 JOB #: [id number] Unit #: [id number] #: [id number] Patient: DONI MCMAHON HISTORY AND PHYSICAL Page 1 of 1 X X HISTORY AND PHYSICAL
--- NOTE | ~2017-03-08 | CT122 ---
[facility] A Service of [facility] & [facility] RADIOLOGY TEXT RESULTS PATIENT: DONI MCMAHON LOCATION: [facility] 471-01 : [birth year] UNIT #: [id number] AGE: [address]: Aric Hicks MD SEX: F ORDER DR: [id number] [facility] [address] [place], [place] [address] [id number] I MR#: [id number] Acc #: [id number] NAME: DONI MCMAHON : 1940 SEX: F STUDY DATE/TIME: 03/08/2017 18:02 UNIT: [facility] ROOM: [facility] STUDY DESCRIPTION: CT Thoracic Spine Wo Cont Attending Physician: Aric Hicks M.D. Referring Physician: Zohaib Garrett M.D. Ordering Physician: Ronan Jackson M.D. Primary Care Physician: Hunter Viveros M.D. MEDICAL IMAGING REPORT This report is preliminary unless electronic signature is present EXAM CT thoracic spine without IV contrast. COMPARISON CT thoracic spine dated February 20, 2017, and lumbar spine radiographs dated February 19, 2017. INDICATIONS 76-year-old female with upper back pain, intermittent lower extremity numbness for 4 days. Thoracic spinal insufficiency fractures diagnosed a few weeks ago. TECHNIQUE Axial CT imaging of the thoracic spine was performed. Coronal and sagittal reformats were constructed. Lack of IV contrast limits evaluation of vasculature and soft tissues. This CT exam was performed with one or more of the following radiation dose reduction techniques: automatic exposure control, adjustment of mA and/or kV according to patient size, and iterative reconstruction. FINDINGS Changes of vertebroplasty appear grossly stable at L1. As compared to February 19, 2017, there appears to be increasing height loss of the T12 vertebral body, now with near vertebral plana deformity, likely interval progression of compression fracture. This is likely an insufficiency fracture given diffuse osteopenia. Changes of the vertebroplasty appear grossly stable at the T8 vertebral body. Vertebroplasty also appears grossly stable at the T4 vertebral body. There is stable height loss of the T4 vertebral body as well as of the T8 vertebral body. There is stable mild anterior height loss of the T7 vertebral body. There is no significant retropulsion of bone fragment into the spinal canal. There are calcifications at the level of the carotid bulbs bilaterally. [facility] A Service of [facility] & [facility] RADIOLOGY TEXT RESULTS PATIENT: DONI MCMAHON LOCATION: [facility] [id number] : [birth year] UNIT #: [id number] AGE: [address]: Aric Hicks MD SEX: F ORDER DR: There is diffuse calcification of the thoracic aorta and the visualized abdominal aorta with calcifications involving origins of the renal arteries, superior mesenteric and celiac arteries. There has been prior cholecystectomy. Diffuse calcification of the splenic artery without visible aneurysm. Calcifications at the level of the aortic valve. Multivessel coronary artery calcifications. There is moderate to severe cardiomegaly. Arterial calcifications at the level of the left renal hilum. Splenule near the splenic hilum. Detailed evaluation of the lungs is limited by motion. Airways appear patent. Dependent attenuation in both lung bases is likely reflecting atelectasis. However, there is some peripheral linear ground-glass opacities seen more superiorly in the dependent lower lobes and in the superior right upper lobe, again most suggestive of atelectasis. Band-like opacities are also seen in the right upper lobe. These again most likely represent atelectasis with atelectasis also favored in the right middle lobe. No significant pleural effusion. IMPRESSION 1. Progression of vertebral body height loss at T12 as compared to February 20, 2017, now with near vertebral plana deformity. There is a 66% diffuse height loss. Acute or subacute compression fracture cannot be excluded. There is stable projection of approximately 2 mm of the T12 and L1 vertebral bodies into the spinal canal. 2. There are, otherwise, stable changes of vertebroplasty at T4, T8 and L1 with stable height loss of these vertebral bodies. No other evidence of possible acute fracture of the thoracic spine is seen, although, evaluation is limited by diffuse osteopenia. 3. Diffuse arterial calcifications including the coronary arteries, cervical carotid arteries and the visualized aorta and the abdominal aortic branches. There is involvement of the celiac, superior mesenteric and bilateral renal artery origins. 4. Calcification of the aortic valve leaflets. 5. Prior cholecystectomy. 6. Moderate to severe cardiomegaly. There are multifocal lung opacities favoring subsegmental atelectasis over pneumonia. Clinical correlation recommended. No pleural effusion. Dictated by... Maxi Lucero M.D. THIS IS AN ELECTRONICALLY VERIFIED REPORT Maxi Lucero M.D. at 03/11/2017 3:11 PM JENA/kana TD: 03/08/2017 22:37 JOB #: [id number] MEDICAL IMAGING REPORT [facility] A Service of [facility] & [facility] RADIOLOGY TEXT RESULTS PATIENT: DONI MCMAHON LOCATION: [place] [address] : 40 UNIT #: [id number] AGE: [address]: Aric Hicks MD SEX: F ORDER DR: Page 1 of 1 COPY
--- NOTE | ~2017-03-08 | CO ---
Unit #: [id number] #: [id number] Patient: DONI MCMAHON [id number] [facility]. [place] [address] [facility]. [place], [place] [address] [id number] I MR#: [id number] NAME: DONI MCMAHON ROOM: 471 Age: 76 Sex: F Admission Date: 03/08/2017 : 1940 Attending Physician: Aric Hicks M.D. Primary Care Physician: Hunter Viveros M.D. Consultation Date: 03/10/2017 CONSULTATION REPORT JOB NOTE: CC: DR. WOOD HISTORY OF PRESENT ILLNESS She is well known to me from the office. She recently suffered an increase in pain, was admitted. Further imaging revealed a new presence of a new fracture at T12. PAST MEDICAL HISTORY As per chart. MEDICATIONS Include Prevacid, Tenormin, Singulair, aspirin, tramadol, Lasix, Plaquenil, Spiriva, ProAir, amiodarone, Percocet, Flexeril, Macrobid, Eliquis, and Levaquin. Most significant is the fact that she recently suffered bilateral DVTs and she is therefore anticoagulated and therefore kyphoplasty is not an option. REVIEW OF SYSTEMS 14-point review of systems is negative except for the above complaints. PHYSICAL EXAMINATION GENERAL: She is lying comfortably in bed. NEUROLOGIC: She is neurologically intact. DIAGNOSTIC STUDIES IMAGING STUDIES: Her CT scan reveals acute fracture of T12. CLINICAL IMPRESSION T12 fracture, osteoporotic. RECOMMENDATION Recommendations are for bracing. The purpose of bracing is to prevent further deformity from developing when she is up. However, when measured for the brace, she refused the brace. I spoke with her at length regarding the risks of not stabilizing this fracture when she is up and ambulatory. She could suffer paralysis, neurologic deficits or further deformity, or additional fractures. She and her daughters were present and they all assume the risk of the above problems without stabilization. I will attempt a Lyric hyperextension brace which to me is not as ideal as a TLSO custom-molded brace. However, if they refused that, they are certainly assuming the risk of additional medical problems related to these fractures, which are certainly bound to heal and kyphotic deformity and chronic pain without at least bracing when ambulatory. Another Unit #: [id number] #: [id number] Patient: DONI MCMAHON problem is the pain management issue. I will ask Dr. Wood if he can see the patient in consultation to address her pain management concern. She is concerned about getting hooked on pain medication, but right now, she is in severe pain with the new fractures. Dictated by... Fermin Molina/sean TD: 03/10/2017 18:40 JOB #: [id number] CONSULTATION REPORT Page 1 of 1 X Nathan Rao MD X CONSULTATION REPORT
--- NOTE | ~2017-03-08 | DS ---
Unit #: [id number] #: [id number] Patient: DONI MCMAHON [id number] [place] [id number] [facility]. [place], [place] [address] [id number] I MR#: [id number] NAME: DONI MCMAHON ROOM: 471 Age: 76 Sex: F Admission Date: 03/08/2017 : 1940 Discharge Date: 03/12/2017 Attending Physician: Aric Hicks M.D. Primary Care Physician: Hunter Viveros M.D. DISCHARGE SUMMARY DISCHARGE DIAGNOSES 1. Acute subacute compression fracture T12. 2. Bilateral lower extremity deep venous thromboses. 3. Atrial fibrillation. 4. Chronic obstructive pulmonary disease. 5. Chronic lymphocytic leukemia. 6. Hypertension. 7. Chronic kidney disease. HOSPITAL COURSE The patient is a 76-year-old female who presented to [facility] on 03/08/17 secondary to some back pain that was worsening. She does have a history of fractures and is followed by Dr. Rao. CT showed acute to subacute T12 compression fracture with 2 mm of projection of T12 and L1 vertebral bodies into the spinal canal. She was noted to have changes of vertebroplasty at T4, T8 and L1 with stable height loss. The patient was started on pain control and was seen by Spine. Spine Service recommended TLSO brace but the patient refused. She states this is secondary to a history of claustrophobia and states that she is completely unable to wear this brace. A Lyric hyperextension brace was offered up as an alternative given the patient's adamant refusal and she agreed to look at the brace. She was measured and a brace was ordered. Upon arrival, the patient ultimately had decided not to wear that brace either. Given this decision, the patient was again reminded of a conversation that she had with Dr. Rao earlier in the admission. Both he and I have made her aware that her failure to wear these braces could result in paralysis, neurological deficits, further deformity or additional fractures. Even with this provided information, the patient stated she was uninterested in wearing braces in any form. Given this, the patient is being discharged home with better pain control and follow up with Dr. Rao. DISCHARGE MEDICATIONS 1. ProAir HFA as needed. 2. Amiodarone 200 mg p.o. daily. 3. Spiriva one cap inhaled daily. 4. Eliquis 5 mg p.o. b.i.d. 5. Loratadine 10 mg p.o. daily. 6. Plaquenil 200 mg p.o. b.i.d. Unit #: [id number] #: [id number] Patient: DONI MCMAHON 7. Tenormin 25 mg p.o. b.i.d. 8. Lasix 40 mg p.o. q.48 hours. 9. Colace 100 mg p.o. b.i.d. p.r.n. 10. Singulair 10 mg daily. 11. Aspirin 81 mg daily. 12. Oxycodone 15 mg one p.o. q.6 hours p.r.n. pain, moderate to severe. 13. Ultracet 37.5/325 mg one p.o. q.6 hours p.r.n. pain. 14. Prevacid 30 mg p.o. daily. 15. Vitamin D3 2,000 units p.o. daily. FOLLOWUP The patient should follow up with Dr. Rao in two weeks. Additionally, the patient should follow up with Dr. Middleton in one month for a history of COPD. Dictated by... Aric Hicks M.D. TYRELL/rayo TD: 03/13/2017 08:39 JOB #: [id number] DISCHARGE SUMMARY Page 1 of 1 X Aric Hicks MD X DISCHARGE SUMMARY
--- NOTE | ~2017-03-08 | CT98 ---
[facility] A Service of [facility] & [facility] RADIOLOGY TEXT RESULTS PATIENT: DONI MCMAHON LOCATION: [facility] 471-01 : 40 UNIT #: [id number] AGE: [address]: Aric Hicks MD SEX: F ORDER DR: [id number] [facility] [address]. [place], [place] [address] [id number] I MR#: [id number] Acc #: [id number] NAME: DONI MCMAHON : 1940 SEX: F STUDY DATE/TIME: 03/08/2017 18:02 UNIT: [facility] ROOM: [facility] STUDY DESCRIPTION: CT Lumbar Spine Wo Cont Attending Physician: Aric Hicks M.D. Ordering Physician: Ed Doctor [id number] [facility] Primary Care Physician: Hunter Viveros M.D. MEDICAL IMAGING REPORT This report is preliminary unless electronic signature is present EXAM CT of the lumbar spine dated 03/08/2017 HISTORY Back pain upper and lower numbness off and on in the lower extremities for 4 days. Previous diagnosis of T-spine fractures from lifting a paper shredder a few weeks ago. TECHNIQUE This CT exam was performed with one or more of the following radiation dose reduction techniques: automatic exposure control, adjustment of mA and/or kV according to patient size, and iterative reconstruction. CT of the lumbar spine performed. Bone soft tissue windows reviewed. Sagittal coronal reconstructions performed. COMPARISON STUDIES Lumbar spine series 02/19/2017, CT chest 01/04/2016 and lateral view of the chest 03/01/2017. Please see separate dictation for full details of the thoracic spine findings. FINDINGS The visualized portions of liver, pancreas, adrenal glands, kidneys, small bowel and colon show no acute abnormality. There is some hyperdense material in the proximal colon likely reflecting patient's ingestion history. Atherosclerotic arterial calcifications. No aortic aneurysm seen on these images. The bony structures show extensive bony demineralization. The T12 vertebral body level is incompletely visualized. There is severe compression deformity of the T12 vertebral body which is unchanged from lateral chest radiograph 03/01/2017. It is probably increased from lumbar [facility] A Service of [facility] RADIOLOGY TEXT RESULTS PATIENT: DONI MCMAHON LOCATION: [facility]- : 40 UNIT #: [id number] AGE: [address]: Aric Hicks MD SEX: F ORDER DR: spine series 02/19/2017 and is new compared to CT chest 01/04/2016. Given the bony demineralization, this is probably an osteoporotic compression deformity. At the partially visualized T12 vertebral body level, there is some haziness in the paraspinal fat which would support some inflammatory change indicating subacute time course. There is retropulsion of posterior T12 cortex with mild mass effect on thecal sac and mild central spinal canal narrowing. The visualized posterior elements appear intact. Chronic compression deformity of the L1 vertebral body with an anterior wedge shape with loss of height up to 44% anteriorly relative to normal L3 vertebral body. Patient has undergone L1 vertebroplasty. There is mild and stable central loss of height L2. The L3, L4, L5 vertebral bodies are normal in height. There is subtle grade 1 anterolisthesis of L4 on L5 by about 1-2 mm. This is probably on the basis of facet degenerative changes. There is no compelling evidence of acute fracture in the lumbar spine. No acute malalignment. T12 - L1: Minimal posterior disc osteophyte complex. No spinal stenosis. Neural foramina patent without evidence of exiting nerve impingement. L1 vertebral plasty. There is some cement along the posterior aspect of the vertebral body. There is mild narrowing of the central spinal canal. L1 - L2: No significant disc bulge or herniation. Spinal canal diameter normal. The neural foramina patent but without evidence of exiting nerve impingement. L2 - L3: Posterior concentric disc bulge. In conjunction with facet and ligamentum flavum hypertrophic change, there is mild central spinal canal narrowing. The bilateral neural foramina appear patent with only mild narrowing and no indication of exiting nerve impingement. L3 - L4: Broad-based posterior concentric disc bulge. Facet and ligament flavum hypertrophic changes mild in degree. In combination, these findings are causing mild to mild/moderate central spinal canal narrowing. Mild narrowing neural foramina, more pronounced on the left than right. No definite intraforaminal nerve impingement. L4 - L5: Posterior concentric disc bulge slightly more pronounced posterolaterally on the left. Minimal anterolisthesis as noted. Moderate facet and ligamentum flavum hypertrophic changes. Moderate central spinal canal narrowing. Mild bilateral foraminal narrowing without clear indication of exiting nerve impingement. There is some narrowing of the bilateral L4 lateral recesses. L5-S1: Minimal posterior disc bulge. No mass effect on thecal sac. Mild facet and ligamentum flavum hypertrophic change. Neural foramina patent without evidence of exiting nerve impingement. IMPRESSION STS. [facility] A Service of [facility] RADIOLOGY TEXT RESULTS PATIENT: DONI MCMAHON LOCATION: [facility] : 40 UNIT #: [id number] AGE: [address]: Aric Hicks MD SEX: F ORDER DR: 1. Please see separately dictated CT of the thoracic spine for discussion of thoracic spine findings. There is an incompletely visualized moderate to severe compression deformity of the T12 vertebral body. This is unchanged from a lateral chest radiograph dated 03/01/2017. It is probably progressed in the interval from lumbar spine radiograph dated 02/19/2017 and is new compared to a chest CT dated December,. On the basis of this examination, I favor that this is a progression of osteoporotic compression fracture. There is some retropulsion of the posterior T12 cortex but no free fragment suggested. There is some mild mass effect on thecal sac and only mild central spinal canal narrowing as a result. 2. Prior vertebroplasty at L1. No change from prior studies. 3. Degenerative changes at multiple levels. See [id number] description in body of report above. Mild posterior concentric disc bulge L2-L3. Mild mass effect on thecal sac. Minimal central spinal canal narrowing. Posterior concentric disc bulge L3-L4 in conjunction with facet and ligamentum flavum hypertrophic changes causing mild to mild/moderate central spinal canal narrowing. Mild foraminal narrowing without clear indication of exiting nerve impingement. 4. Findings probably most pronounced overall L4 - L5 where there is a mild 1-2 mm grade 1 anterolisthesis which in conjunction with a mild posterior concentric disc bulge and moderate facet and ligamentum flavum hypertrophic changes is causing moderate central spinal canal narrowing. Some degree of descending nerve root crowding might be present. This could best be further evaluated with MRI if the patient is a candidate. There is some narrowing of the bilateral L4 lateral recesses. Mild foraminal narrowing without clear indication of intraforaminal nerve impingement. 5. See remainder of findings in body report above. Dictated by... Nathan Schumacher M.D. THIS IS AN ELECTRONICALLY VERIFIED REPORT Nathan Schumacher M.D. at 03/12/2017 7:36 AM Zohaib TD: 03/08/2017 22:34 JOB #: [id number] MEDICAL IMAGING REPORT Page 1 of 1 COPY
[2017-03-08 14:55] LABS: BASOPHIL% 0.6 % (0-2.5); EOSINOPHIL# 0.1 X10e3 (0-0.7); EOSINOPHIL% 0.8 % (0.0-7.0); HEMATOCRIT 41.6 % (35.0-45.0); LYMPHOCYTE# 1.1 X10e3 (1.0-3.5); LYMPHOCYTE% 15.1 % (17.0-45.0); MEAN CELL VOLUME 86.2 FL (83-96); MEAN CORPUSCULAR HEMOGLOBIN 26.9 PG (28-34); MEAN CORPUSCULAR HGB CONC 31.2 g/dL (30-36); MEAN PLATELET VOLUME 9.4 FL (6.5-11.5); MONOCYTE# 0.8 X10e3 (0-1.0); MONOCYTE% 11.4 % (3.0-12.0); NEUTROPHIL# 5.3 X10e3 (1.5-7.1); NEUTROPHIL% 72.1 % (40-75); PLATELET COUNT 301 X10e3 (140-420); RED BLOOD COUNT 4.82 X10e (3.90-5.30); RED CELL DISTRIBUTION WIDTH 16.3 % (11.0-15.5); WHITE BLOOD COUNT 7.3 X10e3 (4.0-10.5)
[2017-03-08 14:56] LABS: DIFF IND NO
[2017-03-08 15:18] LABS: INR 1.3; PROTHROMBIN TIME (PATIENT) 14.3 SECONDS (9.6-11.5)
[2017-03-08 15:20] LABS: ALBUMIN SERUM 3.5 g/dL (3.5-5.0); BILIRUBIN,TOTAL 0.7 mg/dL (0.2-2.0); BUN/CREATININE RATIO 16.66; CALCIUM SERUM 9.9 mg/dL (8.4-10.2); CREATININE SERUM 1.5 mg/dL (0.6-1.4); GLOM FILT RATE Estimated 33.5 mL/min (>60); POTASSIUM 3.3 mmol/L (3.5-5.1); PROTEIN TOTAL SERUM 7.4 g/dL (6.0-8.3)
[2017-03-08 16:54] LABS: URINE SOURCE CLEAN CATCH
[2017-03-08 17:13] LABS: URINE APPEARANCE CLEAR; URINE BLOOD NEG (NEG); URINE COLOR DK YELLOW; URINE GLUCOSE NEG (NEG); URINE KETONE 1+ (NEG); URINE LEUKOCYTE ESTERASE NEG (NEG); URINE NITRATE POS (NEG); URINE PH 5.5 (5-8); URINE PROTEIN 1+ (NEG); URINE SPECIFIC GRAVITY 1.023 (1.003-1.035)
[2017-03-08 17:16] LABS: CULTURE INDICATED? YES; URINE BACTERIA AUWI NEG (NEGATIVE); URINE SQUAMOUS EPITHELIAL CELL OCC /[HPF]
[2017-03-08 17:21] LABS: URINE BILIRUBIN NEG (NEG)
[2017-03-08 17:31] LABS: URINE MUCUS PRESENT
[~2017-03-08 19:17] MED LIST changes: +ALLERGY10 M1 PO; +AMIODARONE HCL200 MG PO; +ELIQUIS5 MG PO; +FLEXERIL PO; +MACROBID100 M1 PO; +NORVASC PO; +PERCOCET10 PO
[2017-03-08] MEDS ORDERED: LEVAQUIN PO (19:44)
[2017-03-09 03:59] LABS: BUN/CREATININE RATIO 17.33; CALCIUM SERUM 9.3 mg/dL (8.4-10.2); CREATININE SERUM 1.5 mg/dL (0.6-1.4); GLOM FILT RATE Estimated 33.5 mL/min (>60); POTASSIUM 3.8 mmol/L (3.5-5.1)
[2017-03-10 04:38] LABS: BASOPHIL# 0.1 X10e3 (0-0.3); BASOPHIL% 0.9 % (0-2.5); DIFF IND NO; EOSINOPHIL# 0.4 X10e3 (0-0.7); EOSINOPHIL% 5.4 % (0.0-7.0); HEMATOCRIT 39.1 % (35.0-45.0); LYMPHOCYTE# 1.7 X10e3 (1.0-3.5); LYMPHOCYTE% 24.5 % (17.0-45.0); MEAN CELL VOLUME 86.7 FL (83-96); MEAN CORPUSCULAR HEMOGLOBIN 26.5 PG (28-34); MEAN CORPUSCULAR HGB CONC 30.6 g/dL (30-36); MEAN PLATELET VOLUME 8.9 FL (6.5-11.5); MONOCYTE# 0.8 X10e3 (0-1.0); MONOCYTE% 11.8 % (3.0-12.0); NEUTROPHIL# 3.9 X10e3 (1.5-7.1); NEUTROPHIL% 57.4 % (40-75); PLATELET COUNT 265 X10e3 (140-420); RED BLOOD COUNT 4.51 X10e (3.90-5.30); RED CELL DISTRIBUTION WIDTH 16.4 % (11.0-15.5); WHITE BLOOD COUNT 6.8 X10e3 (4.0-10.5)
[2017-03-10 04:47] LABS: BUN/CREATININE RATIO 17.64; CALCIUM SERUM 9.1 mg/dL (8.4-10.2); CREATININE SERUM 1.7 mg/dL (0.6-1.4); GLOM FILT RATE Estimated 28.8 mL/min (>60); POTASSIUM 3.8 mmol/L (3.5-5.1)
[2017-03-11 02:24] LABS: BUN/CREATININE RATIO 18.66; CALCIUM SERUM 8.6 mg/dL (8.4-10.2); CREATININE SERUM 1.5 mg/dL (0.6-1.4); GLOM FILT RATE Estimated 33.5 mL/min (>60)
[2017-03-12] MEDS ORDERED: OXYCODONE HCL15 MG PO (16:44)
== END 2017-03-12 17:55 | disposition home or self-care (01) | DRG 543 ==
LOC: CED 19:17 → CEDOF 20:00 → C4C 22:19
PROVIDERS: Emergency Medicine; Internal Medicine
DX: M80.08XA Age-related osteoporosis with current pathological fracture, vertebra(e), initial encounter for fracture (principal); C91.10 Chronic lymphocytic leukemia of B-cell type not having achieved remission; N17.9 Acute kidney failure, unspecified; I82.411 Acute embolism and thrombosis of right femoral vein; N18.3 Chronic kidney disease, stage 3 (moderate); M32.9 Systemic lupus erythematosus, unspecified; N39.0 Urinary tract infection, site not specified; I82.432 Acute embolism and thrombosis of left popliteal vein; I48.91 Unspecified atrial fibrillation; J44.9 Chronic obstructive pulmonary disease, unspecified; I12.9 Hypertensive chronic kidney disease with stage 1 through stage 4 chronic kidney disease, or unspecified chronic kidney disease; I73.9 Peripheral vascular disease, unspecified; Z99.81 Dependence on supplemental oxygen; Z88.2 Allergy status to sulfonamides; Z88.0 Allergy status to penicillin; Z90.49 Acquired absence of other specified parts of digestive tract; Z95.820 Peripheral vascular angioplasty status with implants and grafts; Z82.49 Family history of ischemic heart disease and other diseases of the circulatory system; Z87.891 Personal history of nicotine dependence; Z79.82 Long term (current) use of aspirin; Z79.01 Long term (current) use of anticoagulants
CPT/HCPCS: 36415; 72128; 72131; 80048; 80053; 81003; 85025; 85610; 85730; 87086; 94640; 94664; 94760; 97163; 99285; G8978-GP; G8979-GP; G8980-GP; J1956; J2405

== ENCOUNTER → 2017-03-19 | Day surgery (SDC) | payer MEDICARE, BC ==
[~2017-03-19] MED LIST changes: +LEVAQUIN PO; +MR XX; +OXYCODONE HCL15 MG PO
--- NOTE | ~2017-03-19 | OR ---
Unit #: [id number] #: [id number] Patient: DONI MCMAHON [id number] [address] [place], [place] [address] [id number] O MR#: [id number] NAME: DONI MCMAHON ROOM: Date of Procedure: 03/19/2017 Admission Date: 03/19/2017 Surgeon: Jai Wood M.D. : 1940 Attending Physician: Jai Wood M.D. Primary Care Physician: Hunter Viveros M.D. OPERATIVE REPORT PREOPERATIVE DIAGNOSES Thoracic compression fracture, back pain and thoracic radicular pain. POSTOPERATIVE DIAGNOSES Thoracic compression fracture, back pain and thoracic radicular pain. PROCEDURE PERFORMED Thoracic epidural steroid injection with fluoroscopic guidance for needle localization. HISTORY The patient is a 76-year-old female, five weeks status post development of T12 compression fracture. They were not able to do a kyphoplasty on her. She has had kyphoplasties in the past that were helpful. She was moderately responsive to analgesics medication, but with still significant discomfort. Based on history, pathology, symptomatology, and level of pain, we are going to trial with the thoracic epidural steroid injection to try and palliate some of this pain more effectively. DESCRIPTION OF PROCEDURE The patient was placed in a seated position. Standard monitors were applied. Sterile prep and drape of the thoracolumbar area was performed. The skin then to the right of midline at the T12 level was localized with 1% lidocaine. An 18-gauge Hustead needle was then advanced via right paramedian approach and loss of resistance technique in toward the epidural space. After confirming proper needle tip positioning with fluoroscopy and radiographic contrast, a dose of 80 mg of Depo-Medrol and 4 mL of 0.125% bupivacaine were deposited. The patient tolerated this part of the procedure without complaint and was discharged to the recovery room in stable condition. Dictated by... Jai Wood M.D. LHP/aronl TD: 03/19/2017 12:00 JOB #: [id number] Nathan Rao M.D. Unit #: [id number] #: [id number] Patient: DONI MCMAHON OPERATIVE REPORT Page 1 of 1 X Jai Wood MD X PROCEDURE OPERATIVE NOTE
== END | disposition home or self-care (01) ==
LOC: CCSC 08:20
DX: M48.54XA Collapsed vertebra, not elsewhere classified, thoracic region, initial encounter for fracture (principal); I10 Essential (primary) hypertension; J44.9 Chronic obstructive pulmonary disease, unspecified; M06.9 Rheumatoid arthritis, unspecified
CPT/HCPCS: J1040; J2250

== ENCOUNTER → 2017-04-11 | Day surgery (SDC) | payer MEDICARE, BC ==
--- NOTE | ~2017-04-11 | OR ---
Unit #: [id number] #: [id number] Patient: DONI MCMAHON [id number] [address] [address] [id number] O MR#: [id number] NAME: DONI MCMAHON ROOM: Date of Procedure: 04/11/2017 Admission Date: 04/11/2017 Surgeon: Jai Wood M.D. : 1940 Attending Physician: Jai Wood M.D. Primary Care Physician: Hunter Viveros M.D. OPERATIVE REPORT JOB NOTE: CC: [facility] PREOPERATIVE DIAGNOSES Back pain, radiculopathy, degenerative disk and spine disease. POSTOPERATIVE DIAGNOSES Back pain, radiculopathy, degenerative disk and spine disease. PROCEDURE PERFORMED Lumbar epidural steroid injection with fluoroscopic guidance for needle localization. INDICATIONS FOR PROCEDURE The patient is a 76-year-old female with multilevel multifactorial spine and disk problems. She treated about 3 weeks ago with the epidural steroids at the T12 level, where she had a new compression fracture, but was not a candidate for kyphoplasty. That pain area actually has settled, somewhat pain across her low back, bilateral radiculopathy at this point. Plan is to repeat an epidural steroid injection in the lower lumbar spine to address that known area of pathology. DESCRIPTION OF PROCEDURE The patient was placed in the seated position. Standard monitors were applied. Sterile prep and drape of the lumbar area was performed. The skin then at the L3 level was localized with 1% lidocaine. An 18-gauge EARTHTORYtead needle was then advanced via loss of resistance technique and fluoroscopic guidance in toward the epidural space. The patient did not complain of pain or paresthesia during needle advancement. After confirming proper positioning with fluoroscopy and radiographic contrast, 80 mg of Depo-Medrol and 4 mL of 0.125% bupivacaine were deposited. The patient tolerated the procedure otherwise well and was discharged to the recovery room in stable condition. Dictated by... Fermin Oh/sean TD: 04/12/2017 00:35 JOB #: [id number] Unit #: [id number] #: [id number] Patient: DONI MCMAHON OPERATIVE REPORT Page 1 of 1 X Jai Wood MD X PROCEDURE OPERATIVE NOTE
== END | disposition home or self-care (01) ==
LOC: CCSC 09:53
DX: M51.16 Intervertebral disc disorders with radiculopathy, lumbar region (principal); I10 Essential (primary) hypertension; J44.9 Chronic obstructive pulmonary disease, unspecified; M06.9 Rheumatoid arthritis, unspecified; M19.90 Unspecified osteoarthritis, unspecified site
CPT/HCPCS: J1040; J2250

== ENCOUNTER → 2017-05-15 | Outpatient (CLI) | payer MEDICARE, BC ==
--- NOTE | ~2017-05-15 | NM5 ---
[facility] A Service of [facility] & [facility] RADIOLOGY TEXT RESULTS PATIENT: DONI MCMAHON LOCATION: [facility] : 40 UNIT #: [id number] AGE: [address]: Hunter Viveros MD SEX: F ORDER DR: [id number] [facility] [address] [place], [place] [address] [id number] O MR#: [id number] Acc #: [id number] NAME: DONI MCMAHON : 1940 SEX: F STUDY DATE/TIME: 05/15/2017 12:15 UNIT: [facility] ROOM: STUDY DESCRIPTION: [place] Bone or Joint Limited Scan Attending Physician: Hunter Viveros M.D. Ordering Physician: Hunter Viveros M.D. Primary Care Physician: Hunter Viveros M.D. MEDICAL IMAGING REPORT This report is preliminary unless electronic signature is present EXAM Whole body bone scan. HISTORY 76-year-old female. Extensive, diffuse pain throughout the spine since January 2017. Was lifting a heavy object and developed pain. The patient has had a T8 kyphoplasty, 01/19/16. COMPARISON CT lumbar spine, 03/08/17, and CT thoracic spine, 02/20/17. FINDINGS Whole body and selective spot images were performed of the axial and appendicular skeleton following the intravenous administration of 28.8 mCi technetium-99m MDP. Examination demonstrates multiple foci of increased uptake within the lower thoracic and lumbar spine most intense at T12, L2, L3, and L5. Previous CT in February revealed substantial T12 compression fracture and this may account for the increased uptake at T12. Also demonstrated was a mild superior endplate compression fracture of L2 on the February study. The uptake at L3 and at L5 could be degenerative in nature, but, given its broad uptake across the vertebral body, raises the concern for new compression fractures at these levels. Correlation with conventional lumbar spine films may be of benefit. No significant increased uptake is seen within the mid thoracic spine. Uptake within the remainder of the axial and appendicular skeleton unremarkable for age. Bilateral renal activity and normal bladder activity noted. IMPRESSION Multiple foci of increased uptake in the lower thoracic and lumbar spine as detailed above. The uptake at T12 and at L2 may be explained by previously identified compression fractures. The uptake at L3 and L5 cannot be fully explained based on the patient's prior CTs in February and, . [facility] A Service of [facility] RADIOLOGY TEXT RESULTS PATIENT: DONI MCMAHON LOCATION: [facility] : 40 UNIT #: [id number] AGE: [address]: Hunter Viveros MD SEX: F ORDER DR: though this could be degenerative in nature, its more diffuse increased uptake, particularly along the superior endplate of L5, raises the concern for new fractures. Correlation with conventional lumbar spine films may be sufficient to determine the nature of the increased uptake. Dictated by... Sangeetha Mantilla M.D. THIS IS AN ELECTRONICALLY VERIFIED REPORT Sangeetha Mantilla M.D. at 05/21/2017 9:27 AM Kiana TD: 05/17/2017 10:57 JOB #: [id number] MEDICAL IMAGING REPORT Page 1 of 1 COPY
== END | disposition home or self-care (01) ==
LOC: CNUC 09:16
DX: M54.9 Dorsalgia, unspecified (principal); R94.8 Abnormal results of function studies of other organs and systems
CPT/HCPCS: 78300; A9503

== ENCOUNTER 2017-05-29 06:04 | Inpatient (IN) | payer MEDICARE, BC ==
[~2017-05-29] VITALS: Ht 166.4 cm; Wt 72.0 kg
--- NOTE | ~2017-05-29 | DS ---
Unit #: [id number] #: [id number] Patient: DONI MCMAHON [id number] [facility]. [address] [address] [id number] I MR#: [id number] NAME: DONI MCMAHON ROOM: 306 Age: 76 Sex: F Admission Date: 05/30/2017 : 1940 Discharge Date: Attending Physician: Tommy Tabares M.D. Primary Care Physician: Hunter Viveros M.D. DISCHARGE SUMMARY ADDENDUM Diagnoses and discharge medications are unchanged. ADDITIONAL HOSPITAL COURSE Patient's discharge was held as patient had some intractable lightheadedness when standing. She was reevaluated by Neurology and continues to strictly refuse an MRI even if she was markedly sedated. Patient's symptoms have been thoroughly evaluated by Neurology, and there are no new recommendations at this time. We did check orthostatic vitals to make sure treatment of her blood pressure was not affecting her with standing and causing dizziness, but her orthostatic vitals were completely normal with pulse running from 61 to 70 and systolic blood pressure always in the range of 144 to 153. I have reviewed her medications. At this time, I do not think we should make any medication changes and would just recommend monitoring her clinically at subacute rehab for the next two to three days. If she fails to show improvement in her symptoms over the next three days, consideration could be made for trying to change her pain medications away from oxycodone and tramadol to an alternative opiate and possibly take her off of a type 1 antihistamine yaa or her Prevacid, but the chance that those last two changes would make any difference is fairly low. DISCHARGE DISPOSITION To subacute rehab. DISCHARGE STATUS Stable. DISCHARGE DIET A 2000 mg sodium, heart-healthy diet. DISCHARGE ACTIVITY With assistance only. DISCHARGE FOLLOWUP 1. With her primary care physician in four to six weeks. 2. With Dr. Amor Ponce in six to eight weeks. SPECIAL NOTE Patient's acute stroke is felt to be likely but could not be definitively diagnosed with imaging as the patient was unable to tolerate the imaging. Unit #: [id number] #: [id number] Patient: DONI MCMAHON We are treating it as though it is a new acute stroke. Dictated by... Tommy Tabares M.D. WSB/am TD: 06/03/2017 17:05 JOB #: [id number] DISCHARGE SUMMARY Page 1 of 1 X Tommy Tabares MD X DISCHARGE SUMMARY
--- NOTE | ~2017-05-29 | EKG ---
PATIENT: DONI MCMAHON UNIT #: [id number] Ventricular Rate: 74 BPM Atrial Rate: 74 BPM P-R Interval: 160 ms QRS Duration: 102 ms Q-T Interval: 432 ms QTC Calculation(Bezet): 479 ms P [place]: 19 degrees Calculated R [place]: -33 degrees Calculated T [place]: 51 degrees Diagnosis Line: Normal sinus rhythm Diagnosis Line: Left axis deviation Diagnosis Line: Left ventricular hypertrophy with repolarization Diagnosis Line: abnormality Diagnosis Line: Abnormal ECG Diagnosis Line: When compared with ECG of 22-FEB-2017 05:44, Diagnosis Line: T wave inversion no longer evident in Inferior Diagnosis Line: leads Diagnosis Line: Confirmed by MARIA E CAIN MD ([id number]) on Diagnosis Line: 05/31/2017 7:29:46 AM INTERPRETING MD: ANT MCCORMICK
--- NOTE | ~2017-05-29 | CR72 ---
[facility]. [facility] A Service of [facility] & [facility] RADIOLOGY TEXT RESULTS PATIENT: DONI MCMAHON LOCATION: [facility] 306-01 : 40 UNIT #: [id number] AGE: [address]: Zenaida Hayden MD SEX: F ORDER DR: [id number] [facility] [address] [place], [place] [address] [id number] I MR#: [id number] Acc #: [id number] NAME: DONI MCMAHON : 1940 SEX: F STUDY DATE/TIME: 05/29/2017 18:59 UNIT: [address] ROOM: [facility] STUDY DESCRIPTION: CR Chest Single View Portable Attending Physician: Anisa Perez M.D. Ordering Physician: Anisa Perez M.D. Primary Care Physician: Hunter Viveros M.D. MEDICAL IMAGING REPORT This report is preliminary unless electronic signature is present EXAM Portable chest. HISTORY Shortness of air today. FINDINGS Mild bibasilar linear atelectasis or scarring. Low lung volumes. Upper and lower thoracic vertebroplasties. No focal airspace consolidation. Cardiac and mediastinal contours are within normal limits. IMPRESSION 1. Mild bibasilar linear atelectasis or scarring. 2. No definite active disease in the lungs. Dictated by... Rick Jeff M.D. THIS IS AN ELECTRONICALLY VERIFIED REPORT Rick Jeff M.D. at 05/30/2017 11:03 PM DFL/johanny TD: 05/30/2017 05:33 JOB #: [id number] MEDICAL IMAGING REPORT Page 1 of 1 COPY
--- NOTE | ~2017-05-29 | HP ---
Unit #: [id number] #: [id number] Patient: DONI MCMAHON [id number] [facility] [address]. [place], [place] [address] [id number] I MR#: [id number] NAME: DONI MCMAHON ROOM: 306 Age: 76 Sex: F Admission Date: 05/29/2017 : 1940 Attending Physician: Anisa Perez M.D. Primary Care Physician: Hunter Viveros M.D. HISTORY AND PHYSICAL CHIEF COMPLAINT Code Stroke. HISTORY OF PRESENT ILLNESS The patient is a 76-year-old female with a past medical history of compression fractures, bilateral lower extremity DVTs, atrial fibrillation, chronic anticoagulation, COPD, chronic respiratory failure, CLL, hypertension, chronic kidney disease, lupus, and peripheral vascular disease, who is being seen in the PACU for evaluation of the above. The patient was apparently in her usual state of health until the morning of admission when she underwent kyphoplasty. She has had multiple compression fractures. Today, she was having elective kyphoplasty. Following kyphoplasty, the patient was noted to be very weak in the lower extremities. She was unable to walk to the bathroom without a great deal of assistance. She was also noted to have decreased control of her right arm. It seemed to be "falling off the rail." A Code Stroke was called. She was seen by Neurology and not thought to be a candidate for any type of intervention. A CT of the head was done and showed nothing acute. Of note, her last dose of Eliquis was in the evening on May 27, 2017. Also of note, the patient has an allergy to IV dye and is refusing MRI as well. She is being admitted to [facility] for evaluation and further treatment. PAST MEDICAL HISTORY 1. Admission to [facility] March 08 through March 12, 2017, for acute/subacute compression fracture. She was seen in consultation by Dr. Rao who recommended TLSO brace which the patient refused. 2. Bilateral lower extremity DVTs. 3. Atrial fibrillation. The patient sees Dr. Kevin. 4. Chronic anticoagulation with Eliquis. 5. Echocardiogram June 30, 2014, showed mild asymmetric left ventricular hypertrophy with an ejection fraction greater than 55%. Mild inferior wall hypokinesis was noted. Doppler flow pattern was suggestive of impaired left ventricular relaxation. Mild tricuspid regurgitation was noted, as well as mild valvular aortic stenosis. 6. Chronic obstructive pulmonary disease. 7. Chronic respiratory failure on two liters of oxygen per nasal cannula. 8. Chronic lymphocytic leukemia followed by Dr. Steiner. 9. Hypertension. 10. Chronic kidney disease followed by Dr. Martinez. 11. Lupus maintained on Plaquenil previously followed by Dr. Jose. Unit #: [id number] #: [id number] Patient: DONI MCMAHON 12. Peripheral vascular disease, status post right lower extremity stenting. PAST SURGICAL HISTORY 1. Cardiac catheterization. 2. Right lower extremity stent. 3. Kyphoplasty. 4. Oophorectomy. 5. Appendectomy. 6. Cholecystectomy. SOCIAL HISTORY The patient lives alone. She walks sometimes without a walker but does have a walker available if needed. She is a former smoker. Her code status is a Full Code. FAMILY HISTORY Notable for her mother having coronary artery disease. ALLERGIES Iodine, oral contrast, penicillin, Protonix, and sulfa. HOME MEDICATIONS Per the Discharge Summary from March 12, 2017, include: 1. Eliquis 5 mg p.o. b.i.d. 2. ProAir p.r.n. 3. Amiodarone 200 mg daily. 4. Spiriva inhaled daily. 5. Loratadine 10 mg daily. 6. Plaquenil 200 mg b.i.d. 7. Tenormin 25 mg b.i.d. 8. Lasix 48 mg q.48 hours. 9. Colace 100 mg b.i.d. p.r.n. 10. Singulair 10 mg daily. 11. Aspirin 81 mg daily. 12. Oxycodone 15 mg q.6 hours p.r.n. 13. Ultracet 37.5/325 q.6 hours p.r.n. 14. Prevacid 30 mg daily. 15. Vitamin D3 at 2000 units daily. Home medications will need to be reviewed and verified. REVIEW OF SYSTEMS A complete review of systems is negative except as indicated in the History of Present Illness. PHYSICAL EXAMINATION VITAL SIGNS: Temperature is 96.4, pulse 63, respirations 16, blood pressure 161/64, and oxygen saturation 91% on room air, currently 95% on 2 liters. GENERAL: Patient is a female who is awake and alert. HEENT: Head is atraumatic. Mucous membranes are moist. NECK: Supple. Trachea is midline. CARDIOVASCULAR: Irregular. LUNGS: Clear to auscultation bilaterally with no increased work of breathing. ABDOMEN: Soft and nontender with bowel sounds present in all four quadrants. Unit #: [id number] #: [id number] Patient: DONI MCMAHON EXTREMITIES: Nontender with no pedal edema. NEUROLOGIC: Patient is oriented x3. There is no facial asymmetry. Tongue is midline. Shoulder shrug is normal. There is right upper extremity pronator drift. Midwife strength is symmetric. The patient seemed to have poor control of the right upper extremity. Sensation is subjectively intact. Gait was not assessed. PSYCHIATRIC: Mood and affect are normal. Patient is cooperative. SKIN: Skin of examined areas is warm and dry. DIAGNOSTIC STUDIES LABORATORY: Complete blood count from this morning is essentially normal. INR was 1.1. IMAGING: CT of the head shows nothing acute. ASSESSMENT The patient is a 76-year-old female with: 1. Right upper extremity weakness concerning for possible cerebrovascular accident. The patient was a Code Stroke and is not felt to be a candidate for acute intervention. 2. Status post kyphoplasty. 3. Chronic anticoagulation with Eliquis. The patient's last dose of Eliquis was on May 27 in the evening. 4. Atrial fibrillation maintained on amiodarone. The patient is also on chronic anticoagulation with Eliquis. She is followed by Dr. Kevin. 5. Bilateral lower extremity deep venous thromboses. 6. Chronic obstructive pulmonary disease. 7. Chronic respiratory failure on two liters of oxygen per nasal cannula. The patient has seen Dr. Middleton in the past. 8. Chronic lymphocytic leukemia followed by Dr. Steiner. 9. Systemic lupus erythematosus maintained on Plaquenil. 10. Peripheral vascular disease, status post lower extremity stenting. 11. Chronic kidney disease, stage 3, with a baseline creatinine around 1.5. The patient has seen Dr. Martinez. 12. Hypertension. 13. Former smoker. PLAN 1. Admit to intermediate level. 2. N.p.o. until speech evaluation. 3. Speech Therapy to evaluate and treat. 4. Normal saline at 75 mL/hour. 5. Bedrest. 6. Fall precautions. 7. Anticoagulation per Neurology. 8. Stroke protocol per Neurology. 9. Consult Neurology regarding possible stroke. 10. Neuro checks. 11. Check EKG and chest x-ray. 12. Stat labs. 13. P.r.n. Zofran. 14. Supplemental oxygen. 15. P.r.n. DuoNebs. 16. Regarding code status, the patient is a Full Code. 1. Dictated by Anisa Perez M.D. Unit #: [id number] #: [id number] Patient: DONI MCMAHON AW/am TD: 05/29/2017 18:01 JOB #: [id number] HISTORY AND PHYSICAL Page 1 of 1 X Anisa Perez MD X HISTORY AND PHYSICAL
--- NOTE | ~2017-05-29 | XA148 ---
[facility] A Service of [facility] & [facility] RADIOLOGY TEXT RESULTS PATIENT: DONI MCMAHON LOCATION: A 306- : 40 UNIT #: [id number] AGE: [address]: Zenaida Hayden MD SEX: F ORDER DR: [id number] [facility] [address]. [place], [place] [address] [id number] I MR#: [id number] Acc #: [id number] NAME: DONI MCMAHON : 1940 SEX: F STUDY DATE/TIME: 05/29/2017 7:39 UNIT: A [facility] ROOM: [facility] STUDY DESCRIPTION: XA Kyphoplasty Lumbar Attending Physician: Zenaida Hayden M.D. Ordering Physician: Carlito Akins M.D. Primary Care Physician: Hunter Viveros M.D. MEDICAL IMAGING REPORT This report is preliminary unless electronic signature is present EXAM T12, L2 and L3 kyphoplasty. INDICATIONS A 76-year-old female with history of multiple compression fractures. She has back pain which limits her daily activities and is refractory to medical management. She had a CT scan in February demonstrating compression fractures of T12 and L2, and had a kyphoplasty procedure planned; however, developed a blood clot, and the procedure had to be postponed. Patient was placed on blood thinners. A bone scan last month showed increased uptake in T12, L2, L3 and L5. During a consult, on exam, the patient was tender to palpation in her lower thoracic and upper lumbar spine but not over the L5 level. She was scheduled for kyphoplasty of T12 and L2 and perhaps L3. Although there was no loss of height of the CT scan, she did develop increased activity in the L3 vertebral body on bone scan suggesting an interval compression deformity. TECHNIQUE The fluoroscopy time was 31.7 minutes. Reference air kerma is 3627 mGy/cm. Medications administered 10 mg of Versed IV and 400 mcg of fentanyl IV for conscious sedation. Approximately 2 hours and 50 minutes of sedation time was monitored by appropriately credentialed radiology nursing staff with direct face to face supervision provided by Dr. Mantilla, and 600 mg of IV clindamycin was administered for IV prophylaxis. The risks, benefits and alternative of the procedure were discussed with the patient and informed consent was obtained. In the procedure room, a time-out was performed confirming correct patient and procedure. All elements maximum sterile-barrier technique utilized according guidelines appropriate for the procedure. [facility] A Service of [facility] & [facility] RADIOLOGY TEXT RESULTS PATIENT: DONI MCMAHON LOCATION: [facility] 306-01 : 40 UNIT #: [id number] AGE: [address]: Zenaida Hayden MD SEX: F ORDER DR: TECHNIQUE/FINDINGS The patient was placed in the prone position on the fluoroscopy table. Heel Washer Stringing Machine Operator imaging was performed. This demonstrate a prior vertebral augmentation of L1. There was a compression fracture of T12 noted and mild upper endplate compression deformity of T11. There is a stable compression fracture of L2, and there is also a compression deformity of the upper endplate of L3 which it is new compared with the CT scan. Because of the interval compression deformity of L3, the increased activity on bone scan and the patient's back pain, the decision was made to perform an L3 kyphoplasty in addition to T12 and L2. Skin overlying the lumbar spine was prepped and draped usual sterile fashion. Using sterile caps, gowns, gloves, mass, drapes, 2% Chlorhexidine percutaneous antisepsis and local anesthesia was provided with 1% lidocaine. First, the T12 vertebral body as targeted. Using a bipedicular approach, bone access needles were advanced into the posterior aspect of the T12 vertebral body under constant fluoroscopic guidance. Next, the L2 vertebral body was targeted and under fluoroscopic guidance, bone access needles were advanced into the posterior aspect of the vertebral body at L2. Next, drill bits were advanced through each pedicular access of the L2 vertebral body to create pathways for the balloons. The drill bits were removed and next the balloons were advanced through each pedicular access and into the L2 vertebral body. Both the balloons were inflated under fluoroscopic guidance to create cavities. The balloon was left inflated and attention was turned to the T12 vertebral body. Drill bits were advanced through each pedicular access in the T12 vertebral to create channels for the balloons. The drill bits were removed. Next, balloons were advanced into the T12 vertebral body through each pedicular access. The left-sided balloon was inflated first. There was a lot of resistance to inflation of the balloon; however, it was eventually inflated to create a cavity. Next the right T12 balloon was inflated. However, the balloon from the L2 vertebral body on the right was inadvertently inflated instead causing that balloon to rupture. There was some contrast extravasation laterally into the psoas muscle. The balloon was then deflated and removed immediately. The left-sided balloon in L2 was also deflated and removed immediately. There was no obvious violation of any of the davis of the vertebral body. The decision was then made to inject the cement into the L2 vertebral body. Next L2 was filled with polymethylmethacrylate bone cement. There was good filling of the L2 vertebral body, and there is no evidence for any cement extravasation. Attention was turned back to the T12 vertebral body. The right-sided balloon was then inflated to create a cavity. Both of the balloons were STS. [facility] A Service of [facility] RADIOLOGY TEXT RESULTS PATIENT: DONI MCMAHON LOCATION: [facility] 306-01 : 40 UNIT #: [id number] AGE: [address]: Zenaida Hayden MD SEX: F ORDER DR: then deflated and the T12 vertebral body was filled with polymethylmethacrylate cement with good filling and no evidence of cement extravasation. The bone access needles were then removed from both T12 and L2 and hemostasis was achieved. Next, attention was turned to the L3 vertebral body. Using a bipedicular approach the L3 body was accessed with two bone access needles into the posterior aspect of vertebral body. Drill bits were then advanced through each access needle to create a channel for the balloons. The drill bits was removed and next the balloons were advanced through the needles into the vertebral body and inflated under fluoroscopic guidance. The balloons were deflated and removed. Next, the L3 vertebral body was filled with polymethylmethacrylate cement. There was good filing of cement and no evidence of extravasation. The access needles were removed and hemostasis was achieved. Final spot images were taken. This demonstrated good cement filling of T12, L2 and L3 without any evidence of cement extravasation. There was a mild convex deformity of the anterior and mid portion of the lower endplate of L2. There was some height congregation to T12. The patient was taken to the recovery room for continued monitoring. IMPRESSION Technically successful kyphoplasty use of T12, L2 and L3 as described. There was balloon rupture involving the right L2 vertebral body as described. No evidence for any cement extravasation. Dictated by... Benjamin Mantilla M.D. THIS IS AN ELECTRONICALLY VERIFIED REPORT Benjamin Mantilla M.D. at 05/31/2017 4:00 PM MILLY/ivett TD: 05/30/2017 13:04 JOB #: [id number] MEDICAL IMAGING REPORT Page 1 of 1 COPY
--- NOTE | ~2017-05-29 | CT71 ---
[facility] A Service of [facility] RADIOLOGY TEXT RESULTS PATIENT: DONI MCMAHON LOCATION: A 306-01 : 40 UNIT #: [id number] AGE: [address]: Zenaida Hayden MD SEX: F ORDER DR: [id number] [facility] [address] [place], [place] [address] [id number] I MR#: [id number] Acc #: [id number] NAME: DONI MCMAHON : 1940 SEX: F STUDY DATE/TIME: 05/30/2017 13:15 UNIT: C3A PCU ROOM: 306 STUDY DESCRIPTION: CT Head Wo Contrast Attending Physician: Zenaida Hayden M.D. Ordering Physician: Anisa Perez M.D. Primary Care Physician: Hunter Viveros M.D. MEDICAL IMAGING REPORT This report is preliminary unless electronic signature is present EXAM Head CT without HISTORY Code stroke at 14:48 on 05/29/2017 post kyphoplasty right upper extremity ataxia, followup from yesterday's study. COMMENTS Routine noncontrast head CT is reviewed. This CT exam was performed with one or more of the following radiation dose reduction techniques: automatic exposure control, adjustment of mA and/or kV according to patient size, and iterative reconstruction. COMPARISON STUDIES Comparison study is from 05/29/2017. FINDINGS There is some mucosal disease right maxillary sinus. There is no sinus air-fluid level. Moderate vascular calcifications at the base of the brain. The mastoid air cells are clear. There is chronic lacunar disease left inferior cerebellar hemisphere to a lesser extent right inferior cerebellar hemisphere. Tiny lacune left superior cerebellar hemisphere. There is chronic malacic area in the left occipital lobe posterolaterally. This is probably due to a remote ischemic insult given the small lacunes in the cerebellar hemispheres. This malacic area probably extends to the more posterior aspect of the left temporal lobe. There is no evidence for acute intracranial hemorrhage or extraaxial fluid collection. There is mild generalized atrophy. The basilar cisterns are patent. There is no intracranial mass effect. Patient has had cataract surgery bilaterally. No acute cortical infarct is appreciated but if there is still clinical concern for this possibility and the patient is a candidate she is best assessed further with MRI. [facility] A Service of [facility] RADIOLOGY TEXT RESULTS PATIENT: DONI MCMAHON LOCATION: C[facility] PC 306-01 : 40 UNIT #: [id number] AGE: [address]: Zenaida Hayden MD SEX: F ORDER DR: IMPRESSION No acute intracranial abnormality is appreciated. Again there is encephalomalacia involving the left occipital lobe posterolaterally extending to the more posterior aspect left temporal lobe. There are also small cerebellar hemispheric lacunes. These findings are chronic and consistent with a remote ischemic insult to the posterior circulation. Please correlate with any known history. No acute ischemic insult is appreciated but if there is still clinical concern for this possibility, and the patient is a candidate, she is best assessed further with an MRI. There is no intracranial mass effect or acute intracranial hemorrhage. STAT * RESULT Dictated by... Jocelyn Garcia M.D. THIS IS AN ELECTRONICALLY VERIFIED REPORT Jocelyn Garcia M.D. at 05/30/2017 5:09 PM Maximino TD: 05/30/2017 16:32 JOB #: [id number] MEDICAL IMAGING REPORT Page 1 of 1 COPY
--- NOTE | ~2017-05-29 | US37 ---
[facility] A Service of [facility] & [facility] RADIOLOGY TEXT RESULTS PATIENT: DONI MCMAHON LOCATION: [facility] 306- : 40 UNIT #: [id number] AGE: [address]: Zenaida Hayden MD SEX: F ORDER DR: [id number] [facility] [address] [place], [place] [address] [id number] I MR#: [id number] Acc #: [id number] NAME: DONI MCMAHON : 1940 SEX: F STUDY DATE/TIME: 05/30/2017 11:25 UNIT: [address] ROOM: [facility] STUDY DESCRIPTION: US Carotid W/Doppler Bilateral Attending Physician: Zenaida Hayden M.D. Ordering Physician: Anisa Perez M.D. Primary Care Physician: Hunter Viveros M.D. MEDICAL IMAGING REPORT This report is preliminary unless electronic signature is present EXAM Carotid Doppler ultrasound HISTORY Hypertension. Right-side numbness yesterday. Headache. Prior CVA. FINDINGS Ultrasound examination of the carotid arteries was performed with barajas-scale and Doppler. There is a pidp-si-zkaaicee calcified plaque in the left proximal internal carotid artery and additional mild plaque in the carotid bulbs and proximal right internal carotid artery. Peak systolic velocities in the internal carotid arteries are 129 cm/sec on the right, and 152 cm/sec on the left. Findings indicate 50% to 69% diameter stenoses in the internal carotid arteries bilaterally, by NASCET criteria. There is antegrade flow in both vertebral arteries. The external carotid arteries are patent bilaterally. IMPRESSION 1. 50% to 69% diameter stenosis in the internal carotid arteries bilaterally, by NASCET criteria. 2. Partly calcified plaque in the carotid arteries bilaterally, slightly greater in the proximal left internal carotid artery. 3. Antegrade flow in both vertebral arteries. Dictated by... Rick Jeff M.D. THIS IS AN ELECTRONICALLY VERIFIED REPORT Rick Jeff M.D. at 05/31/2017 11:39 PM [facility] A Service of [facility] & [facility] RADIOLOGY TEXT RESULTS PATIENT: DONI MCMAHON LOCATION: A 306-01 : 40 UNIT #: [id number] AGE: [address]: Zenaida Hayden MD SEX: F ORDER DR: Yohana TD: 05/30/2017 23:17 JOB #: [id number] MEDICAL IMAGING REPORT Page 1 of 1 COPY
--- NOTE | ~2017-05-29 | CT71 ---
[facility] A Service of [facility] & [facility] RADIOLOGY TEXT RESULTS PATIENT: DONI MCMAHON LOCATION: [facility] 306- : 40 UNIT #: [id number] AGE: [address]: Zenaida Hayden MD SEX: F ORDER DR: [id number] [facility] [address] [place], [place] [address] [id number] I MR#: [id number] #: [id number] NAME: DONI MCMAHON : 1940 SEX: F STUDY DATE/TIME: 05/29/2017 14:48 UNIT: A PCU ROOM: [facility] STUDY DESCRIPTION: CT Head Wo Contrast Attending Physician: Anisa Perez M.D. Ordering Physician: Irma Soto M.D. Primary Care Physician: Hunter Viveros M.D. MEDICAL IMAGING REPORT This report is preliminary unless electronic signature is present EXAM CT head without IV contrast COMPARISON October 01, 2014. INDICATIONS 66-year-old female with right upper extremity ataxia since 8 a.m. Lumbar kyphoplasty today. FINDINGS Axial CT imaging of the head was performed. This CT exam was performed with one or more of the following radiation dose reduction techniques: Automatic exposure control, adjustment of mA and/or kV according to patient size, and iterative reconstruction. Cerumen in both external ear canals. Mastoid air cells, middle ears and visualized paranasal sinuses are well aerated. There are mucous retention cysts versus polyps in the right maxillary sinus. No acute fractures or suspicious osseous lesions. Calcifications noted of the cavernous and petrous segments of the internal carotid arteries bilaterally. There is mild cerebral and cerebellar volume loss. There is no abnormal extraaxial fluid collection or mass effect. No acute intracranial hemorrhage. Chronic left occipital lobe infarct is again noted. Streak artifact from the inner table of the calvarium and motion limit evaluation of the posterior fossa as well as the middle cranial fossa. No convincing evidence of acute ischemia is seen on this exam. IMPRESSION 1. No acute intracranial abnormality. Stable chronic infarct in the left occipital lobe. 2. Mild cerebral and cerebellar volume loss. Arterial calcifications. [facility] A Service of [facility] & [facility] RADIOLOGY TEXT RESULTS PATIENT: DONI MCMAHON LOCATION: [facility] 306-01 : 40 UNIT #: [id number] AGE: [address]: Zenaida Hayden MD SEX: F ORDER DR: Dictated by... Maxi Lucero M.D. THIS IS AN ELECTRONICALLY VERIFIED REPORT Maxi Lucero M.D. at 06/02/2017 10:27 PM JENA/maximo TD: 05/29/2017 22:22 JOB #: [id number] MEDICAL IMAGING REPORT Page 1 of 1 COPY
--- NOTE | ~2017-05-29 | DS ---
Unit #: [id number] #: [id number] Patient: DONI MCMAHON [id number] [address] [address] [id number] I MR#: [id number] NAME: DONI MCMAHON ROOM: 306 Age: 76 Sex: F Admission Date: 05/29/2017 : 1940 Discharge Date: 06/02/2017 Attending Physician: Zenaida Hayden M.D. Primary Care Physician: Hunter Viveros M.D. DISCHARGE SUMMARY DISCHARGE DIAGNOSES 1. Cerebrovascular accident with right-sided weakness. 2. History of atrial fibrillation. 3. History of cerebrovascular accident in the past. 4. Chronic obstructive pulmonary disease. 5. History of chronic lymphocytic leukemia. 6. Peripheral vascular disease status post right iliac stent. 7. History of frequent vertebral compression fractures status post kyphoplasty. 8. History of chronic kidney disease. CONSULTATIONS Neurology. DIAGNOSTIC STUDIES IMAGING: CT scans x2. HOSPITAL COURSE This is a pleasant 76-year-old female who was admitted on 05/29/2017 with right-sided weakness. She was diagnosed with CVA, but clinically she has significantly improved. She had CT scan x2, which showed no acute infarct. The patient could not get MRI. The patient was treated with anticoagulation. On admission her blood pressure was elevated. She was started on hydralazine. She was continued on all the home medications. The patient is significantly improved clinically at this time to be transferred to the halfway unit. DISCHARGE MEDICATIONS 1. Lisinopril 5 mg daily. 2. Albuterol inhaler. 3. Amiodarone 200 mg p.o. every morning. 4. Spiriva inhaler daily. 5. Eliquis 5 mg b.i.d. 6. Zofran 4 mg q.6 p.r.n. 7. Claritin 10 mg daily. 8. Hydroxychloroquine 200 mg p.o. b.i.d. 9. Atenolol 25 mg b.i.d. 10. Furosemide 20 mg p.o. q.48 hours. 11. Atorvastatin 40 mg daily. 12. Hydralazine discontinued. 13. Singulair 10 mg p.o. daily. 14. Aspirin 81 mg daily. 15. Oxycodone 15 mg q.6 p.r.n. 16. Tramadol 50 mg q.6 as needed. Unit #: [id number] #: [id number] Patient: DONI MCMAHON 17. Prevacid 30 mg q.12. 18. Vitamin D 2,000 units daily. CONDITION AT DISCHARGE Stable. DISPOSITION Transfer to rehab, skilled care unit. Dictated by... Fermin Gracia TD: 06/02/2017 12:38 JOB #: [id number] DISCHARGE SUMMARY Page 1 of 1 X Dale Bridges MD X DISCHARGE SUMMARY
[~2017-05-29 06:04] MED LIST changes: -MR XX
[2017-05-29 06:48] LABS: HEMATOCRIT 39.5 % (35.0-45.0); HEMOGLOBIN 12.4 gm/dL (12.0-16.0); MEAN CELL VOLUME 85.3 FL (83-96); MEAN CORPUSCULAR HEMOGLOBIN 26.8 PG (28-34); MEAN CORPUSCULAR HGB CONC 31.5 g/dL (30-36); RED BLOOD COUNT 4.62 X10e (3.90-5.30); RED CELL DISTRIBUTION WIDTH 16.3 % (11.0-15.5); WHITE BLOOD COUNT 6.4 X10e3 (4.0-10.5)
[2017-05-29 07:04] LABS: INR 1.1; PARTIAL THROMBOPLASTIN TIME 28.9 SECONDS (23.5-31.3); PROTHROMBIN TIME (PATIENT) 11.9 SECONDS (10.0-11.7)
[2017-05-29 16:06] LABS: POC - CREATININE 0.84 mg/dL (0.44-1.03); POC - GFR >60.0 mL/min (>60)
[2017-05-29 18:58] LABS: HEMATOCRIT 37.8 % (35.0-45.0); HEMOGLOBIN 11.7 gm/dL (12.0-16.0); MEAN CELL VOLUME 86.1 FL (83-96); MEAN CORPUSCULAR HEMOGLOBIN 26.7 PG (28-34); MEAN PLATELET VOLUME 9.1 FL (6.5-11.5); RED BLOOD COUNT 4.39 X10e (3.90-5.30); RED CELL DISTRIBUTION WIDTH 16.3 % (11.0-15.5)
[2017-05-29 18:59] LABS: WHITE BLOOD COUNT 12.3 X10e3 (4.0-10.5)
[2017-05-29 19:01] LABS: INR 1.1
[2017-05-29 19:39] LABS: CHOLESTEROL 167 mg/dL (0-200); HDL CHOLESTEROL 54 mg/dL (35-95); LDL CHOLESTEROL 98 mg/dL (-130); LDL/HDL RATIO 2 RATIO (0-4); TRIGLYCERIDES 77 mg/dL (10-160)
[2017-05-29 20:36] LABS: ALBUMIN SERUM 3.5 g/dL (3.5-5.0); BILIRUBIN,TOTAL 0.8 mg/dL (0.2-2.0); BUN/CREATININE RATIO 15.83; CALCIUM SERUM 8.9 mg/dL (8.4-10.2); CREATININE SERUM 1.2 mg/dL (0.6-1.4); GLOM FILT RATE Estimated 43.9 mL/min (>60); POTASSIUM 3.6 mmol/L (3.5-5.1); PROTEIN TOTAL SERUM 6.5 g/dL (6.0-8.3)
[2017-05-30] MEDS ORDERED: OXYCODONE HCL15 MG PO (02:45)
[2017-05-30 05:27] LABS: INR 1.1; PROTHROMBIN TIME (PATIENT) 12.3 SECONDS (10.0-11.7)
[2017-05-30 05:28] LABS: HEMATOCRIT 33.9 % (35.0-45.0); HEMOGLOBIN 10.5 gm/dL (12.0-16.0); MEAN CELL VOLUME 86.5 FL (83-96); MEAN CORPUSCULAR HEMOGLOBIN 26.8 PG (28-34); MEAN CORPUSCULAR HGB CONC 30.9 g/dL (30-36); MEAN PLATELET VOLUME 9.2 FL (6.5-11.5); RED BLOOD COUNT 3.91 X10e (3.90-5.30); RED CELL DISTRIBUTION WIDTH 15.9 % (11.0-15.5); WHITE BLOOD COUNT 7.9 X10e3 (4.0-10.5)
[2017-05-30 07:28] LABS: BILIRUBIN,TOTAL 1.2 mg/dL (0.2-2.0); CALCIUM SERUM 8.8 mg/dL (8.4-10.2); GLOM FILT RATE Estimated 54.7 mL/min (>60); POTASSIUM 3.5 mmol/L (3.5-5.1); PROTEIN TOTAL SERUM 5.5 g/dL (6.0-8.3)
[2017-05-31 05:58] LABS: HEMATOCRIT 33.3 % (35.0-45.0); HEMOGLOBIN 10.3 gm/dL (12.0-16.0); MEAN CELL VOLUME 85.7 FL (83-96); MEAN CORPUSCULAR HEMOGLOBIN 26.6 PG (28-34); MEAN CORPUSCULAR HGB CONC 31.1 g/dL (30-36); MEAN PLATELET VOLUME 9.4 FL (6.5-11.5); RED BLOOD COUNT 3.89 X10e (3.90-5.30); RED CELL DISTRIBUTION WIDTH 16.3 % (11.0-15.5); WHITE BLOOD COUNT 8.2 X10e3 (4.0-10.5)
[2017-05-31 07:11] LABS: BUN/CREATININE RATIO 13.33; CALCIUM SERUM 8.6 mg/dL (8.4-10.2); CREATININE SERUM 1.2 mg/dL (0.6-1.4); GLOM FILT RATE Estimated 43.9 mL/min (>60)
[2017-05-31 07:13] LABS: POTASSIUM 2.9 mmol/L (3.5-5.1)
[2017-05-31] MEDS ORDERED: MR XX (14:11)
[2017-05-31 14:22] LABS: CALCIUM SERUM 8.7 mg/dL (8.4-10.2); GLOM FILT RATE Estimated 54.7 mL/min (>60)
[2017-05-31 14:48] LABS: POTASSIUM 4.7 mmol/L (3.5-5.1)
[2017-06-01 06:01] LABS: HEMATOCRIT 33.8 % (35.0-45.0); HEMOGLOBIN 10.4 gm/dL (12.0-16.0); MEAN CELL VOLUME 86.8 FL (83-96); MEAN CORPUSCULAR HEMOGLOBIN 26.8 PG (28-34); MEAN CORPUSCULAR HGB CONC 30.8 g/dL (30-36); MEAN PLATELET VOLUME 9.4 FL (6.5-11.5); RED BLOOD COUNT 3.9 X10e (3.90-5.30); RED CELL DISTRIBUTION WIDTH 16.1 % (11.0-15.5)
[2017-06-01 07:06] LABS: GLOM FILT RATE Estimated 54.7 mL/min (>60); POTASSIUM 3.9 mmol/L (3.5-5.1)
== END 2017-06-03 19:25 | DRG 982 ==
LOC: CLAB 06:04 → C3A PCU 15:40 → CLAB 17:47 → C3A PCU 17:47
PROVIDERS: Family Medicine; Internal Medicine
PROC: 0QS03ZZ Reposition Lumbar Vertebra, Percutaneous Approach (ICD-10-PCS; 2017-05-29)
PROC: 0QU03JZ Supplement Lumbar Vertebra with Synthetic Substitute, Percutaneous Approach (ICD-10-PCS; 2017-05-29)
PROC: B246YZZ Ultrasonography of Right and Left Heart using Other Contrast (ICD-10-PCS; principal; 2017-05-30)
DX: I63.8 Other cerebral infarction (principal); G81.91 Hemiplegia, unspecified affecting right dominant side; J96.10 Chronic respiratory failure, unspecified whether with hypoxia or hypercapnia; C91.10 Chronic lymphocytic leukemia of B-cell type not having achieved remission; N18.3 Chronic kidney disease, stage 3 (moderate); M32.9 Systemic lupus erythematosus, unspecified; Z86.73 Personal history of transient ischemic attack (TIA), and cerebral infarction without residual deficits; I73.9 Peripheral vascular disease, unspecified; Z95.820 Peripheral vascular angioplasty status with implants and grafts; I12.9 Hypertensive chronic kidney disease with stage 1 through stage 4 chronic kidney disease, or unspecified chronic kidney disease; Z86.718 Personal history of other venous thrombosis and embolism; J44.9 Chronic obstructive pulmonary disease, unspecified; Z90.49 Acquired absence of other specified parts of digestive tract; Z90.721 Acquired absence of ovaries, unilateral; Z82.49 Family history of ischemic heart disease and other diseases of the circulatory system; Z88.0 Allergy status to penicillin; Z88.8 Allergy status to other drugs, medicaments and biological substances; Z91.041 Radiographic dye allergy status; Z79.01 Long term (current) use of anticoagulants; Z79.82 Long term (current) use of aspirin; D50.9 Iron deficiency anemia, unspecified; R27.0 Ataxia, unspecified; E87.6 Hypokalemia; I48.2 Chronic atrial fibrillation
CPT/HCPCS: 36415; 70450; 71010; 80048; 80053; 80061; 82565; 82947; 83036; 83735; 84443; 85027; 85610; 85730; 86140; 92523-GN; 92610; 93005; 93880; 94640; 94664; 94760; 97110; 97162; 97167; 97530; C1713; C8929; G8978-GP; G8979-GP; G8987-GO; G8988-GO; G8996-GN; G8997-GN; G8998-GN; J2250; J3010; Q9967

== ENCOUNTER 2017-06-21 19:52 | Emergency (ER) | payer MEDICARE, BC ==
[~2017-06-21] VITALS: Ht 165.1 cm; Wt 68.0 kg
--- NOTE | ~2017-06-21 | EKG ---
PATIENT: DONI MCMAHON UNIT #: [id number] Ventricular Rate: 55 BPM Atrial Rate: 55 BPM P-R Interval: 178 ms QRS Duration: 106 ms Q-T Interval: 526 ms QTC Calculation(Bezet): 503 ms P [place]: 25 degrees Calculated R [place]: -24 degrees Calculated T [place]: 20 degrees Diagnosis Line: Sinus bradycardia Diagnosis Line: Left ventricular hypertrophy with repolarization Diagnosis Line: abnormality Diagnosis Line: Prolonged QT Diagnosis Line: Abnormal ECG Diagnosis Line: No previous ECGs available Diagnosis Line: Confirmed by MELITON JULES MD ([id number]) on 06/23/2017 Diagnosis Line: 2:57:50 PM INTERPRETING MD: DHARA MCCORMICK
[~2017-06-21 19:52] MED LIST changes: +MR XX
[2017-06-21 21:24] LABS: BASOPHIL% 0.7 % (0-2.5); EOSINOPHIL% 0.3 % (0.0-7.0); HEMATOCRIT 38.9 % (35.0-45.0); LYMPHOCYTE# 1.2 X10e3 (1.0-3.5); LYMPHOCYTE% 23.9 % (17.0-45.0); MEAN CELL VOLUME 85.4 FL (83-96); MEAN CORPUSCULAR HEMOGLOBIN 26.4 PG (28-34); MEAN CORPUSCULAR HGB CONC 30.9 g/dL (30-36); MEAN PLATELET VOLUME 9.2 FL (6.5-11.5); MONOCYTE# 0.8 X10e3 (0-1.0); MONOCYTE% 15.1 % (3.0-12.0); NEUTROPHIL# 3.1 X10e3 (1.5-7.1); PLATELET COUNT 230 X10e3 (140-420); RED BLOOD COUNT 4.55 X10e (3.90-5.30); RED CELL DISTRIBUTION WIDTH 16.5 % (11.0-15.5); WHITE BLOOD COUNT 5.1 X10e3 (4.0-10.5)
[2017-06-21 21:31] LABS: DIFF IND NO
[2017-06-21 21:50] LABS: POC - CKMB 1.6 ng/mL (0.0-7.9); POC - TROPONIN <0.05 ng/mL (<=0.05)
[2017-06-21 21:52] LABS: BILIRUBIN, DIRECT 0.2 mg/dL (0.0-0.2); BILIRUBIN,INDIRECT 0.5 mg/dL (0.0-0.9); BILIRUBIN,TOTAL 0.7 mg/dL (0.2-2.0); BUN/CREATININE RATIO 11.25; CALCIUM SERUM 9.5 mg/dL (8.4-10.2); CREATININE SERUM 1.6 mg/dL (0.6-1.4); POTASSIUM 3.3 mmol/L (3.5-5.1); PROTEIN TOTAL SERUM 7.3 g/dL (6.0-8.3)
== END 2017-06-21 23:00 | disposition home or self-care (01) ==
LOC: CED 19:52
PROVIDERS: Emergency Medicine
DX: N39.0 Urinary tract infection, site not specified (principal); E87.6 Hypokalemia; R20.9 Unspecified disturbances of skin sensation; I48.91 Unspecified atrial fibrillation; J44.9 Chronic obstructive pulmonary disease, unspecified; N18.9 Chronic kidney disease, unspecified; Z86.73 Personal history of transient ischemic attack (TIA), and cerebral infarction without residual deficits; Z79.82 Long term (current) use of aspirin; Z79.899 Other long term (current) drug therapy; Z91.041 Radiographic dye allergy status; Z88.5 Allergy status to narcotic agent; Z88.2 Allergy status to sulfonamides; Z88.0 Allergy status to penicillin; Z88.8 Allergy status to other drugs, medicaments and biological substances
CPT/HCPCS: 36415; 80048; 80076; 82553; 84484; 85025; 93005; 96372; 99284; J0696

== ENCOUNTER 2017-07-18 11:18 | Emergency (ER) | payer MEDICARE, BC ==
[~2017-07-18] VITALS: Ht 165.1 cm; Wt 68.0 kg
--- NOTE | ~2017-07-18 | CT71 ---
[facility] A Service of [facility] RADIOLOGY TEXT RESULTS PATIENT: DONI MCMAHON LOCATION: [facility] : 40 UNIT #: [id number] AGE: [address]: Darwin Little MD SEX: F ORDER DR: [id number] [facility] [address] [place], [place] [address] [id number] E MR#: [id number] Acc #: [id number] NAME: DONI MCMAHON : 1940 SEX: F STUDY DATE/TIME: 07/18/2017 13:15 UNIT: [facility] ROOM: STUDY DESCRIPTION: CT Head Wo Contrast Attending Physician: Darwin Little M.D. Ordering Physician: Darwin Little M.D. Primary Care Physician: No Primary Care Physician MEDICAL IMAGING REPORT This report is preliminary unless electronic signature is present EXAM CT scan of the head without contrast. INDICATIONS Headache, hypertension since last night with weakness for a week. COMPARISON 05/30/2017. TECHNIQUE Unenhanced images were obtained from the brain. This CT exam was performed with one or more of the following radiation dose reduction techniques: automatic exposure control, adjustment of mA and/or kV according to patient size, and iterative reconstruction. FINDINGS There appears to be some mild encephalomalacia in the left parietooccipital region which is stable from prior study. This involves an area about 3 x 1 cm in size. There is also minimal encephalomalacia in the left temporal lobe with mild prominence of the left sylvian fissure. This, too, is stable. There is no mass or extraaxial fluid collection or hemorrhage. IMPRESSION There appear to be old ischemic change in the left parietooccipital region and the left temporal region which are stable from 05/30/2017. No acute findings are identified. Dictated by... Jey Hua M.D. [facility] A Service [facility] RADIOLOGY TEXT RESULTS PATIENT: DONI MCMAHON LOCATION: [facility] : 40 UNIT #: [id number] AGE: [address]: Darwin Little MD SEX: F ORDER DR: THIS IS AN ELECTRONICALLY VERIFIED REPORT Jey Hua M.D. at 07/18/2017 10:19 PM ANITA/kana TD: 07/18/2017 17:35 JOB #: [id number] MEDICAL IMAGING REPORT Page 1 of 1 COPY
--- NOTE | ~2017-07-18 | CR72 ---
[facility] A Service of [facility] & [facility] RADIOLOGY TEXT RESULTS PATIENT: DONI MCMAHON LOCATION: [facility] : 40 UNIT #: [id number] AGE: [address]: Darwin Little MD SEX: F ORDER DR: [id number] [facility] [address] [place], [place] [address] [id number] E MR#: [id number] Acc #: [id number] NAME: DOIN MCMAHON : 1940 SEX: F STUDY DATE/TIME: 07/18/2017 12:03 UNIT: [facility] ROOM: STUDY DESCRIPTION: CR Chest Single View Portable Attending Physician: Darwin Little M.D. Ordering Physician: Darwin Little M.D. Primary Care Physician: No Primary Care Physician MEDICAL IMAGING REPORT This report is preliminary unless electronic signature is present EXAM Chest, portable, 07/18/2017, 1203 hours. CLINICAL HISTORY 76-year-old woman with 1-week history of shortness of air, elevated blood pressure and weakness. History of lupus, atrial fibrillation and prior CVA. COMPARISON 05/29/2017 FINDINGS Portable upright chest demonstrates very low lung volumes, decreased from the prior study. There is stable cardiomegaly, tortuous aorta and calcified nodes. There is elevation of the left hemidiaphragm slightly worsened from prior study. There is linear bibasilar density likely atelectasis. The upper lungs are clear and there is no effusion. IMPRESSION Very low lung volume exam with stable cardiomegaly, tortuous aorta and worsening of elevation of the left hemidiaphragm. There is horizontal linear density at both lung bases consistent with atelectasis or scar. No definite evidence of pneumonia, edema or effusion. Dictated by... Vicky Chan M.D. THIS IS AN ELECTRONICALLY VERIFIED REPORT Vicky Chan M.D. at 07/19/2017 9:30 AM TEQUILA/kana TD: 07/18/2017 15:22 [facility] A Service of [facility] & [facility] RADIOLOGY TEXT RESULTS PATIENT: DONI MCMAHON [id number] UNIT #: [id number] AGE: [address]: Darwin Little MD SEX: F ORDER DR: JOB #: [id number] MEDICAL IMAGING REPORT Page 1 of 1 COPY
[2017-07-18 12:23] LABS: BASOPHIL% 0.8 % (0-2.5); DIFF IND NO; HEMATOCRIT 35.4 % (35.0-45.0); HEMOGLOBIN 11.3 gm/dL (12.0-16.0); LYMPHOCYTE# 1.3 X10e3 (1.0-3.5); LYMPHOCYTE% 27.9 % (17.0-45.0); MEAN CELL VOLUME 83.5 FL (83-96); MEAN CORPUSCULAR HEMOGLOBIN 26.7 PG (28-34); MONOCYTE# 0.6 X10e3 (0-1.0); MONOCYTE% 12.8 % (3.0-12.0); NEUTROPHIL# 2.8 X10e3 (1.5-7.1); NEUTROPHIL% 58.5 % (40-75); PLATELET COUNT 198 X10e3 (140-420); RED BLOOD COUNT 4.24 X10e (3.90-5.30); RED CELL DISTRIBUTION WIDTH 16.2 % (11.0-15.5); WHITE BLOOD COUNT 4.7 X10e3 (4.0-10.5)
[2017-07-18 12:37] LABS: INR 1.3; PARTIAL THROMBOPLASTIN TIME 31.7 SECONDS (23.5-31.3)
[2017-07-18 12:56] LABS: ALBUMIN SERUM 3.5 g/dL (3.5-5.0); BILIRUBIN, DIRECT 0.1 mg/dL (0.0-0.2); BILIRUBIN,INDIRECT 0.3 mg/dL (0.0-0.9); BILIRUBIN,TOTAL 0.4 mg/dL (0.2-2.0); BUN/CREATININE RATIO 16.92; CREATININE SERUM 1.3 mg/dL (0.6-1.4); GLOM FILT RATE Estimated 39.8 mL/min (>60); POTASSIUM 2.9 mmol/L (3.5-5.1); PROTEIN TOTAL SERUM 6.4 g/dL (6.0-8.3)
[2017-07-18 14:18] LABS: URINE SOURCE CLEAN CATCH
[2017-07-18 14:24] LABS: URINE APPEARANCE CLEAR; URINE BILIRUBIN NEG (NEG); URINE BLOOD NEG (NEG); URINE COLOR YELLOW; URINE GLUCOSE NEG (NEG); URINE KETONE NEG (NEG); URINE LEUKOCYTE ESTERASE NEG (NEG); URINE NITRATE NEG (NEG); URINE PH 6.5 (5-8); URINE PROTEIN 1+ (NEG); URINE SPECIFIC GRAVITY 1.023 (1.003-1.035); URINE UROBILINOGEN 0.2 MG/DL (NEG)
[2017-07-18 14:26] LABS: URBCS1 AUWI 0-2 /[HPF] (0-2); URINE BACTERIA AUWI NEG (NEGATIVE); URINE SQUAMOUS EPITHELIAL CELL OCC /[HPF]; UWBCS1 AUWI 0-2 (0-5)
[2017-07-18 14:28] LABS: CULTURE INDICATED? NO
== END 2017-07-18 15:17 | disposition home or self-care (01) ==
LOC: CED 11:18
PROVIDERS: Emergency Medicine
DX: I10 Essential (primary) hypertension (principal); R53.1 Weakness; E87.6 Hypokalemia; I48.91 Unspecified atrial fibrillation; J44.9 Chronic obstructive pulmonary disease, unspecified; Z90.49 Acquired absence of other specified parts of digestive tract; Z79.01 Long term (current) use of anticoagulants
CPT/HCPCS: 36415; 70450; 71010; 80048; 80076; 81003; 85025; 85610; 85730; 99284